=== PATIENT | female | born 1960 | race Caucasian/White ===

== ENCOUNTER → 2016-11-13 | Outpatient (CLI) | payer MEDICARE, OTHER ==
[2016-11-13 12:40] LABS: CHCM 27.8; HCT 33.8 % (34.0-46.0); HDW 3.34; HGB 9.3 gm/dL (11.4-16.0); Hypochromasia Marked; MCH 23.9 pg (25.0-35.0); Mean Platelet Volume 8.1; RDW 15.1 % (11.5-15.5); WBC 6.3 k/uL (3.8-10.6)
[2016-11-13 12:41] LABS: MCHC 27.6 g/dL (31.0-37.0); MCV 86.8 fL (80.0-100.0)
[2016-11-13 13:07] LABS: ALT 25 U/L (9-52); AST 31 U/L (14-36); Alkaline Phosphatase 110 U/L (38-126); Anion Gap 8 mmol/L; Blood Urea Nitrogen 14 mg/dL (7-17); Calcium 8.8 mg/dL (8.4-10.2); Carbon Dioxide 28 mmol/L (22-30); Chloride 103 mmol/L (98-107); Glucose 78 mg/dL (74-99); Non-African American GFR(MDRD) >60 (>60 ml/min/1.73 sqM); Potassium 4.6 mmol/L (3.5-5.1); Sodium 139 mmol/L (137-145); Total Bilirubin 0.2 mg/dL (0.2-1.3); Total Protein 6.8 g/dL (6.3-8.2)
[2016-11-13 13:42] LABS: Erythrocyte Sedimentation Rate 25 mm/hr (0-20)
--- NOTE | 2016-11-13 14:34 | CT ---
EXAMINATION TYPE: CT abdomen pelvis w con DATE OF EXAM: 11/13/2016 2:10 PM COMPARISON: NONE HISTORY: follow up gastric ulcer per patient. Gastric neoplasm per order. CT DLP: 576 mGycm Automated exposure control for dose reduction was used. TECHNIQUE: Helical acquisition of images was performed from the lung bases through the pelvis. CONTRAST: Performed with Oral Contrast and with IV Contrast, patient injected with 100 mL of Omnipaque 300. FINDINGS: Patient has very little intra-abdominal fat making evaluation suboptimal LUNG BASES: There is partial visualization of bilateral breast implants. There is moderate emphysemat ous change with left basilar linear scarring.. LIVER/GB: There is mild to moderate extrahepatic as well as central intrahepatic biliary dilatation. Common bile duct measures up to 11 mm diameter on coronal image 19. Adjacent pancreatic duct is dilat ed towards the ampulla at 7 mm on axial image 32. Double duct sign is present without visualization o f mass but abrupt tapering on coronal image 20. Follow-up advised. PANCREAS: Pancreatic ductal dilatation of proximal body and head. SPLEEN: No significant abnormality is seen. ADRENALS: No significant abnormality is seen. KIDNEYS: Symmetric cortical medullary uptake and excretion from both kidneys with abnormal superior a xis to right kidney. There is prominent extrarenal pelvis on the right. REPRODUCTIVE ORGANS: No significant abnormality is seen URINARY BLADDER: No significant abnormality is seen. PELVIC ADENOPATHY: None visualized. OSSEOUS STRUCTURES: Suspect nonspecific enhancement of the lumbar nerve root in the spinal canal. BOWEL: The oral contrast reaches level of the hepatic flexure. Stomach is not greatly distended, the re is overall mild to moderate wall thickening with slightly more prominent wall thickening seen in t he distal body near axial image 28. Findings could correlate with residual neoplasm or gastritis. The re is no suspicious small or large bowel dilatation. There is suggestion of abnormal wall thickening in jejunal loops in the left upper to mid abdomen, cannot exclude enteritis at this level. Normal-glenn earing appendix is seen from cecum in the right lower quadrant. Other: There is moderate to severe mixed plaque in aorta and branch vessels. IMPRESSION: 1. PROMINENT WALL THICKENING OF THE STOMACH COULD REFLECT RESIDUAL NEOPLASM VERSUS GASTRITIS, THIS IS NONSPECIFIC FINDING ON CT. 2. NO SUSPICIOUS MASS OR ADENOPATHY IS SEEN TO SUGGEST METASTATIC MALIGNANCY. 3. MILD TO MODERATE BILIARY DILATATION AND MILD PANCREATIC HEAD DUCTAL DILATATION, NO CAUSE IDENTIFIE D, CONSIDER ERCP FOLLOW-UP.
[2016-11-13 16:07] LABS: Nucleated Red Blood Cells 0 /100 WBC (0-0); Ovalocytes Present; Total Cells Counted 100
[2016-11-13 16:08] LABS: Manual Review Performed
[2016-11-14 05:33] LABS: Cardiolipin Ab IgG <9.0 GPL (<15); Cardiolipin Ab IgM 20.1 MPL (<12.5)
== END | disposition home or self-care (01) ==
LOC: RADCTMAIN 11:55
PROVIDERS: ATTEND Internal Medicine Gastroenterology
DX: K31.89 Other diseases of stomach and duodenum (principal); K86.89 Other specified diseases of pancreas; K83.8 Other specified diseases of biliary tract; L98.499 Non-pressure chronic ulcer of skin of other sites with unspecified severity
CPT/HCPCS: 86160 ×2; 86147; 80053; 85652; 85027; 86225; 74177; 36415; Q9967

== ENCOUNTER → 2017-06-05 | Outpatient (CLI) | payer OTHER ==
[2017-06-05 09:28] VITALS: BMI 14.4
== END ==
LOC: MNTWWP 09:05
PROVIDERS: ATTEND Family Medicine
DX: M32.9 Systemic lupus erythematosus, unspecified (principal); R63.6 Underweight
CPT/HCPCS: 36415; 81001; 82607; 82746; 87077; 87086; 87186; 97802

== ENCOUNTER → 2017-06-05 | Outpatient (CLI) | payer OTHER ==
[2017-06-05 11:16] LABS: Appearance,Urine Cloudy (Clear); Bacteria,Urine Rare /hpf; Bilirubin,Urine Negative (Negative); Glucose,Urine (UA) Negative (Negative); Ketones,Urine Negative (Negative); Leukocyte Esterase,Urine Large (Negative); Mucus,Urine Rare /hpf; Nitrite,Urine Positive (Negative); Particle Count 56771; Protein,Urine Negative (Negative); RBC,Urine 2 /hpf (0-5); Specific Gravity,Urine 1.015 (1.001-1.035); UA Billing (MACRO vs. MICRO) MICRO; Urobilinogen,Urine <2.0 mg/dL (<2.0); WBC,Urine 17 /hpf (0-5)
== END | disposition home or self-care (01) ==
LOC: LABWHC1 09:09
PROVIDERS: ATTEND Internal Medicine Rheumatology
DX: N39.0 Urinary tract infection, site not specified (principal); M32.19 Other organ or system involvement in systemic lupus erythematosus; R71.8 Other abnormality of red blood cells
CPT/HCPCS: 36415; 81001; 82607; 82746; 87077; 87086; 87186

== ENCOUNTER → 2018-12-20 | Outpatient (CLI) | payer OTHER ==
--- NOTE | 2018-12-20 12:51 | CT ---
EXAMINATION TYPE: CT brain wo con DATE OF EXAM: 12/20/2018 COMPARISON: None INDICATION: Double vision x 2 months. DLP: 1165.58 mGycm, Automated exposure control for dose reduction was used. CONTRAST: None CT of the brain is performed utilizing 3 mm thick sections through the posterior fossa and 3 mm thick sections through the remaining calvarium. Study is performed within 24 hours of arrival to the hosp ital. No abnormal hyperdensity is present to suggest an acute intracranial hemorrhage. No mass lesion is evident. No acute infarcts are evident. Ventricles and sulci are appropriate for the patient age. Paranasal sinuses and mastoid air cells within the [id number] are clear. IMPRESSIONS: 1. Normal CT Brain
--- NOTE | 2018-12-20 12:55 | CT ---
EXAMINATION TYPE: CT orbits wo con DATE OF EXAM: 12/20/2018 COMPARISON: None HISTORY: Double vision x [address] DLP: 267.02 mGycm Automated exposure control for dose reduction was used. TECHNIQUE: Axial images 2 mm thick sections. Reconstructed images plane. FINDINGS: Note is made of septal deviation. Right septal deviation is present anteriorly. Left septal spur is p resent. Paranasal sinuses and mastoid air cells within the [id number] are clear Globes are symmetrical. Orbital floors are normal. Ostiomeatal units are patent. Fat is normal. Extraocular muscles are normal. The optic chiasm is visualized appears normal. IMPRESSION: 1. NORMAL NONCONTRAST CT ORBITS. 2. CONSIDER MRI ORBITS IF ADDITIONAL EVALUATION WOULD BE OF BENEFIT.
== END | disposition home or self-care (01) ==
LOC: RADCTMAIN 11:17
PROVIDERS: ATTEND Ophthalmology
DX: H53.2 Diplopia (principal)
CPT/HCPCS: 70450; 70480

== ENCOUNTER → 2019-02-19 | Outpatient (CLI) | payer OTHER ==
--- NOTE | 2019-02-19 22:45 | BD ---
EXAMINATION TYPE: Axial Bone Density DATE OF EXAM: 02/19/2019 COMPARISON: 06/22/2015 CLINICAL HISTORY: Height: 62.2 IN Weight: 86 LBS FRAX RISK QUESTIONS: Secondary Osteoporosis: 2. Hyperthyroidism: YES 3. Menopause before 45: AGE 35 Rheumatoid Arthritis: YES Current Tobacco Use: YES RISK FACTORS HISTORY OF: History of Wrist Fracture: YES RT When: AGE 26 Family History of Osteoporosis: YES MOTHER Active: YES Postmenopausal woman: AGE 35 MEDICATIONS: Thyroid Medications: YES Which medication: LEVOTHYROXINE How Lon+ YEARS Osteoporosis Medications: NOT NOW Which medication: FOSAMAX How Lon MONTHS Additional Medications: DAILY VITAMIN, LEVOTHYROXINE, PLAQUENIL, HIGH BLOOD PRESSURE MED, PROZAC EXAM MEASUREMENTS: Bone mineral densitometry was performed using the [employer] System. Bone mineral density as measured about the Lumbar spine is: ----- L1-L4(G/cm2): 0.932 T Score Values are as follows: ----- L2: -1.7 ----- L3: -1.6 ----- L4: -2.4 ----- L1-L4: -2.1 Bone mineral density has: DECREASED -1.3% since study of: Bone mineral density about the R hip (g/cm2): 0.662 Bone mineral density about the L hip (g/cm2): 0.728 T Score values are as follows: -----R Neck: -2.7 -----L Neck: -2.2 -----R Total: -2.9 -----L Total: -2.4 Bone mineral density has: DECREASED -6.3% since study of: 06/22/2015 IMPRESSION: Osteoporosis (T Score less than -2.5). There is increased fracture risk and therapy is usually indicated based on age. Re-Screen 1-2 years. NOTE: T-SCORE=SD OF THE YOUNG ADULT MEAN.
== END | disposition home or self-care (01) ==
LOC: RADBDWWP 15:39
PROVIDERS: ATTEND Internal Medicine Rheumatology
DX: M81.0 Age-related osteoporosis without current pathological fracture (principal)
CPT/HCPCS: 77080

== ENCOUNTER → 2020-07-16 | Outpatient (CLI) | payer OTHER ==
--- NOTE | 2020-07-19 09:14 | US ---
EXAMINATION TYPE: US kidneys/renal and bladder DATE OF EXAM: 07/16/2020 COMPARISON: CT 2017. CLINICAL HISTORY: N39.0 UTI. EXAM MEASUREMENTS: Right Kidney: 10.6 x 4.4 x 4.4 cm Left Kidney: 9.9 x 4.7 x 5.0 cm Post Void Residual Volume: 10.6 mL Right Kidney: prominent extra renal pelvis noted Left Kidney: No hydronephrosis or masses seen Bladder: wnl Bilateral Jets seen: No Normal Post Void Residual: Yes Adjacent liver is heterogeneously hyperechoic with scanning right kidney. Prominent right renal pelvi s redemonstrated without calyceal dilatation. Left kidney shows no hydronephrosis or concerning andrew s. Bladder is satisfactorily distended. After voiding minimal residual urine is present. IMPRESSION: Prominent right-sided extrarenal pelvis redemonstrated. No new hydronephrosis noted.
== END | disposition home or self-care (01) ==
LOC: RADUSWWP 16:07
PROVIDERS: ATTEND Urology
DX: N39.0 Urinary tract infection, site not specified (principal)
CPT/HCPCS: 76770

== ENCOUNTER 2020-08-09 09:59 | Day surgery (SDC) | payer OTHER ==
[2020-08-05 14:49] VITALS: BMI 16.2
[~2020-08-09 09:59] MED LIST: LACTATED RINGERS 1,000 ML IV SCH; LIDOCAINE 1% (10MG/ML) FOR IV START INTRADERMA PRN
[2020-08-09 10:29] VITALS: TEMP 97.9
[2020-08-09] MEDS ORDERED: LABETALOL SYRINGE 5 MG/ML IV ONE (11:10)
[2020-08-09] MEDS ORDERED: hydrALAZINE HCL 20 MG/ML 1 ML VIAL IV ONE ×2 (11:28→11:32)
[2020-08-09] MEDS ORDERED: fentaNYL (PF) 50 MCG/ML 2 ML AMP ONE (12:49)
[2020-08-09] MEDS ORDERED: PROPOFOL 10 MG/ML 20 ML VIAL IV ONE (12:49)
[2020-08-09] MEDS ORDERED: LIDOCAINE 1% INJ 10MG/ML (20 ML MDV) ONE (12:49)
[2020-08-09 13:35] VITALS: PULSE 66; RESP 18
--- NOTE | 2020-08-09 13:38 | P.PCN ---
Date of Procedure: 08/09/20 Description of Procedure: BRIEF HISTORY: Patient is a 60-year-old female presenting for outpatient colonoscopy for screening for malignant neoplasm of the colon. Last colonoscopy 7 years ago. She has a history of colon polyps. No family history of colon cancer. PROCEDURE PERFORMED: Colonoscopy. PREOPERATIVE DIAGNOSIS: Screening for malignant neoplasm of the colon, last colonoscopy 7 years ago. ESTIMATED BLOOD LOSS: Minimal. IV sedation per Anesthesia. PROCEDURE: After informed consent was obtained, the patient, was brought into the endoscopy unit. IV sedation was administered by Anesthesia under continuous monitoring. Digital rectal examination was normal. Initially the Olympus CF-190 flexible video colonoscope was then inserted in the rectum, gradually advanced into the cecum without any difficulty. Careful examination was performed as the scope was gradually being withdrawn. Ileocecal valve and the appendiceal orifice were visualized and appeared normal. Prep was fair with liquid stool throughout the entire colon with some solid components prohibiting complete visualization of the mucosa. Mucosa of the cecum, ascending colon, transverse colon, descending colon, sigmoid colon, and rectum which was able to be visualized appeared normal, however complete visualization prohibited by fair prep. Retroflexion was performed in the rectum and no lesions were seen. The patient tolerated the procedure well. IMPRESSION: Fair prep prohibiting complete visualization of the colon. Otherwise tissue of the mucosa of the colon from rectum to cecum which was able to be visualized and appeared normal. RECOMMENDATIONS: Findings of this examination were discussed with the patient and her family. Okay to resume diet. Okay to resume medications. Would recommend repeat colonoscopy in 1 year with 2 day prep due to poor prep.
[2020-08-09 13:47] VITALS: BP 152/61
== END 2020-08-09 14:16 | disposition home or self-care (01) ==
LOC: ORWHC2ENDO 09:59
PROVIDERS: ATTEND Internal Medicine
DX: Z12.11 Encounter for screening for malignant neoplasm of colon (principal); I10 Essential (primary) hypertension; J44.9 Chronic obstructive pulmonary disease, unspecified; E07.9 Disorder of thyroid, unspecified; M32.9 Systemic lupus erythematosus, unspecified; F17.210 Nicotine dependence, cigarettes, uncomplicated; Z86.010 Personal history of colon polyps; Z79.899 Other long term (current) drug therapy; Z79.890 Hormone replacement therapy; Z98.890 Other specified postprocedural states; Z98.62 Peripheral vascular angioplasty status; Z98.82 Breast implant status; Z90.89 Acquired absence of other organs
CPT/HCPCS: J0360; J2001; J3010; J2704; G0105

== ENCOUNTER 2022-03-19 12:29 | Emergency (ER) | payer OTHER ==
[2022-03-19 13:02] VITALS: RESP 16; TEMP 98.1
--- NOTE | 2022-03-19 14:20 | ED ---
Skin/Abscess/FB HPI - General Chief complaint: Skin/Abscess/Foreign Body Stated complaint: Breast swollen Time Seen by Provider: 03/19/22 14:00 Source: patient, RN notes reviewed, old records reviewed Mode of arrival: ambulatory Limitations: no limitations - History of Present Illness Initial comments: Patient is a 62-year-old female presenting to the emergency Department with complaints of swelling and tenderness around her right breast. Patient does have history of breast implants, has had multiple sets, last set was done about 5-[address] Trevizo. Patient states over the past 3 weeks she has been noticing swelling and some discomfort of her right breast. She denies any erythema or drainage. She did have a consult with another doctor, they were a delgado only basis and she cannot afford $4,000 to see them. Patient then made an appointment with Dr. Ryann Burnett which is not for another 2 weeks. Patient is concerned that she could be developing an infection. She denies any fevers or chills, no nausea or vomiting. She denies any injuries or trauma to the area. She has no further complaints. - Related Data Home Medications Medication Instructions Recorded Confirmed Hydroxychloroquine Sulfate 200 mg PO DAILY 03/02/14 08/05/20 [Plaquenil] Levothyroxine Sodium [Synthroid] 100 mcg PO MOTUWETHFRSA 06/03/14 08/05/20 Cholecalciferol [Vitamin D3 (25 1,000 unit PO DAILY 08/05/20 08/05/20 Mcg = 1000 Iu)] Ferrous Sulfate [Feosol] 325 mg PO DAILY 08/05/20 08/05/20 Folic Acid 1 mg PO DAILY 08/05/20 08/05/20 Losartan [Cozaar] 25 mg PO DAILY 08/05/20 08/05/20 Vitamin B Complex 1 each PO DAILY 08/05/20 08/05/20 atenoloL 12.5 mg PO DAILY 08/05/20 08/05/20 Previous Rx's Medication Instructions Recorded Cephalexin [Keflex] 500 mg PO Q6HR 5 Days #20 cap 03/19/22 Allergies Allergy/AdvReac Type Severity Reaction Status Date / Time No Known Allergies Allergy Verified 03/19/22 13:02 Review of Systems ROS Statement: Those systems with pertinent positive or pertinent negative responses have been documented in the HPI. ROS Other: All systems not noted in ROS Statement are negative. Past Medical History Past Medical History: COPD, Hypertension, Thyroid Disorder Additional Past Medical History / Comment(s): hx lupus, frequent diarrhea & gas, minor aortic stenosis-follows w/[facility], frequent UTI's History of Any Multi-Drug Resistant Organisms: None Reported Past Surgical History: Breast Surgery, Tonsillectomy Additional Past Surgical History / Comment(s): EGD's, part of stomach removed related to ulcers, left lung surg-removed small part related to bleb,. COLONOSCOPY. RT CAROTID ENDARTERECTOMY,. BREAST AUGMENTATION X 4 Past Anesthesia/Blood Transfusion Reactions: Previous Problems w/ Anesthesia Additional Past Anesthesia/Blood Transfusion Reaction / Comment(s): some kind of problem after stomach surgery, "got too much", & aggravated lupus which affected lungs Past Psychological History: No Psychological Hx Reported Smoking Status: Current every day smoker Past Alcohol Use History: None Reported Past Drug Use History: None Reported - Past Family History Father Family Medical History: Cancer General Exam - General Exam Comments Initial Comments: GENERAL: Patient is well-developed and well-nourished. Patient is nontoxic and in no acute distress. HEAD: Atraumatic, normocephalic. EYES: Pupils equal round and reactive to light, extraocular movements intact, sclera anicteric, conjunctiva are normal. Eyelids were unremarkable. ENT: Moist mucous membranes. NECK: Normal range of motion, supple without lymphadenopathy or JVD. LUNGS: Unlabored respirations. Breath sounds clear to auscultation bilaterally and equal. No wheezes rales or rhonchi. HEART: Regular rate and rhythm without murmurs, rubs or gallops. ABDOMEN: Soft, nontender, normoactive bowel sounds. MUSCULOSKELETAL: Normal extremities with adequate strength and normal range of motion, no pitting or edema. No clubbing or cyanosis. NEUROLOGICAL: Patient is alert and oriented x 3. Normal speech, normal gait. PSYCH: Normal mood, normal affect. SKIN: Warm, Dry, normal turgor, no rashes. Right breast is markedly enlarged compared to the left, she does have some fullness with palpation, no specific area pain, no erythema, no drainage present. Limitations: no limitations Course Vital Signs 03/19/22 03/19/22 12:59 15:49 Temperature 98.1 F Pulse Rate 57 L 60 Respiratory 16 16 Rate Blood Pressure 140/59 155/87 O2 Sat by Pulse 98 98 Oximetry Medical Decision Making - Medical Decision Making Patient is a 62-year-old female here with swelling and tenderness of the right breast for the past 3 weeks. No erythema, drainage on exam. Ultrasound showing no pockets of abscess that can be seen. Patient does have an appointment with Dr. Burnett in 2 weeks. Patient be started on Keflex for possibility of a developing cellulitis/abscess. Patient is agreeable to this. Also recommend calling the office first thing in the morning for an earlier appointment. Return parameters were discussed. She verbalized understanding and she is stable for discharge. Disposition Clinical Impression: Breast swelling Disposition: HOME SELF-CARE Condition: Stable Instructions (If sedation given, give patient instructions): Edema (ED) Additional Instructions: Please return to the Emergency Department if symptoms worsen or any other concerns. Take anabolic as prescribed. Follow-up with Dr. Yin Burnett as discussed. Prescriptions: Cephalexin [Keflex] 500 mg PO Q6HR 5 Days #20 cap Is patient prescribed a controlled substance at d/c from ED?: No Referrals: Dwayne Delvalle DO [Primary Care Provider] - 1-2 days Ryann Burnett MD [STAFF PHYSICIAN] - 1-2 days Time of Disposition: 15:45
[2022-03-19 15:50] VITALS: BP 155/87; PULSE 60
== END 2022-03-19 15:50 | disposition home or self-care (01) ==
LOC: EC 12:29
DX: N63.10 Unspecified lump in the right breast, unspecified quadrant (principal); I10 Essential (primary) hypertension; J44.9 Chronic obstructive pulmonary disease, unspecified; F17.200 Nicotine dependence, unspecified, uncomplicated; E07.9 Disorder of thyroid, unspecified; Z79.890 Hormone replacement therapy; Z79.899 Other long term (current) drug therapy
CPT/HCPCS: 99283

== ENCOUNTER → 2022-04-10 | Outpatient (CLI) | payer OTHER ==
[2022-04-10 09:50] VITALS: BP 162/66; PULSE 62; RESP 16; TEMP 97.7
--- NOTE | 2022-04-10 10:46 | P.GSHP ---
History of Present Illness H&P Date: 04/10/22 Chief Complaint: swollen right breast Debbie is a 62 year old white female seen in consultation for Dr. Ramon regarding a swollen right breast. She had bilateral breast silicone implants in 2016. This is her fourth set of implants. Her first implants were placed in . The first set were Avi/[place] Silicone and theses removing 1992 without replacement for several years. She then had saline implants placed in 1996, one ruptured at a mammogram and these were removed in 1997 and replaced again with saline. One of theses also ruptured after a hug and these were replaced silicone in 2005 which she still has in place. Her last mammogram was in 2019, and did not have any recommendation for intervention. At that time she also had an ultrasound. She recently noted the right breast started swelling. It was not hot but is tender. She had no fever or chills. She had been taken care of by Dr. Willis, she saw a plastic surgeon and was told there was fluid behind her implant but that she should have some drainage tubes placed. However, for placement of drainage tube it would cost 4,000$ and she therefore came to see us. She has not had any other surgery on her breast. She is not complaining of any nipple discharge or skin changes. Patient was [place] in [place] [id number]. At that time she was started on an antibiotic. She had minimal results from the antibiotic. Plan was reviewed. She had most recently seen Dr. Delvalle's, Physician Assistnat : Shannen Sanchez on [id number]. That note was reviewed. caffiene: 3 cups/day nicotine: 2-3/day chocolate: occasional hormones: none BCP: never used Family History: father: lung cancer Hormonal history: Menarche: 12 , breast fed: no menopause: 37 secondary to hyperthyroid Surgical History: 4 breast implants tonsil 1/3 of stomach removed for ulcer disease carotid artery Medical history: hyperthyroid lupus mild cardiac stenosis arthritis rheumoatoid HTN Social History: nicotine: 2-3/day alcohol: none drugs: none - Constitutional Constitutional: Denies chills, Denies fever - EENT Eyes: denies blurred vision, denies pain Ears: deny: decreased hearing, tinnitus Ears, nose, mouth and throat: Denies headache, Denies sore throat - Breasts Breasts: bilateral: as per HPI - Cardiovascular Cardiovascular: Reports as per HPI - Respiratory Respiratory: Reports as per HPI - Gastrointestinal Gastrointestinal: Reports as per HPI - Genitourinary (Female) Genitourinary: Denies dysuria, Denies hematuria - Menstruation Menstruation: Reports postmenopausal - Musculoskeletal Musculoskeletal: Reports as per HPI - Integumentary Integumentary: Denies pruritus, Denies rash - Neurological Neurological: Denies numbness, Denies weakness - Psychiatric Psychiatric: Denies anxiety, Denies depression - Endocrine Comment: hyperthyroid/ patient treated with radiation and is now on synthroid - Hematologic/Lymphatic Comment: none - Allergic/Immunologic Allergic/Immunologic: Reports seasonal allergies Past Medical History Past Medical History: COPD, Hypertension, Thyroid Disorder Additional Past Medical History / Comment(s): hx lupus, frequent diarrhea & gas, minor aortic stenosis-follows w/[facility], frequent UTI's History of Any Multi-Drug Resistant Organisms: None Reported Past Surgical History: Breast Surgery, Tonsillectomy Additional Past Surgical History / Comment(s): EGD's, part of stomach removed related to ulcers, left lung surg-removed small part related to bleb,. COLONOSCOPY. RT CAROTID ENDARTERECTOMY,. BREAST AUGMENTATION X 4 Past Anesthesia/Blood Transfusion Reactions: Previous Problems w/ Anesthesia Additional Past Anesthesia/Blood Transfusion Reaction / Comment(s): some kind of problem after stomach surgery, "got too much", & aggravated lupus which affected lungs Past Psychological History: No Psychological Hx Reported Smoking Status: Current every day smoker Past Alcohol Use History: None Reported Additional Past Alcohol Use History / Comment(s): 3-4 cigs day from 1ppd for 30 yrs., has quit before Past Drug Use History: None Reported - Past Family History Father Family Medical History: Cancer Medications and Allergies Home Medications Medication Instructions Recorded Confirmed Type Hydroxychloroquine Sulfate 200 mg PO DAILY 03/02/14 04/10/22 History [Plaquenil] Levothyroxine Sodium [Synthroid] 100 mcg PO MOTUWETHFRSA 06/03/14 04/10/22 History Cholecalciferol [Vitamin D3 (25 1,000 unit PO DAILY 08/05/20 04/10/22 History Mcg = 1000 Iu)] Folic Acid 1 mg PO DAILY 08/05/20 04/10/22 History Losartan [Cozaar] 25 mg PO DAILY 08/05/20 04/10/22 History Vitamin B Complex 1 each PO DAILY 08/05/20 04/10/22 History atenoloL 12.5 mg PO DAILY 08/05/20 04/10/22 History Atorvastatin Calcium [Lipitor] 20 mg PO DAILY 04/10/22 04/10/22 History FLUoxetine HCL [PROzac] 20 mg PO DAILY 04/10/22 04/10/22 History amLODIPine [Norvasc] 5 mg PO DAILY 04/10/22 04/10/22 History Allergies Allergy/AdvReac Type Severity Reaction Status Date / Time No Known Allergies Allergy Verified 04/10/22 09:42 Surgical - Exam Vital Signs Temp Pulse Resp BP Pulse Ox 97.7 F 62 16 162/66 98 04/10/22 09:46 04/10/22 09:46 04/10/22 09:46 04/10/22 09:46 04/10/22 09:46 BMI 15.9 - General no distress - Eyes normal ocular movement - ENT no hearing loss - Neck trachea midline - Respiratory Wheeze left base normal respiratory effort, clear to auscultation - Cardiovascular Rhythm: regular Heart Sounds: normal: S1, S2 Abnormal Heart Sounds: systolic murmur - Abdomen Abdomen: soft, non tender, no guarding, no rigid, no rebound - Integumentary normal turgor - Neurologic no disoriented, no combative - Musculoskeletal normal gait - Psychiatric oriented to time, oriented to person, oriented to place, speech is normal, memory intact Breast Exam: BRA: 34B inspection: Marked asymmetry of the breast with the right being approximately double the size of the left and very firm Palpation: Right breast: Multi-positional exam very firm right breast with abnormal location of the implant, mass lateral aspect approximately 2 x 3 cm in size Right axilla: No adenopathy of concern Left breast: Implant in place most positional exam no discrete dominant masses or nodules of concern Left axilla: No adenopathy of concern Assessment and Plan Assessment: Impression: hyperthyroid lupus mild cardiac stenosis arthritis rheumoatoid HTN Bilateral breast implants times/most recent right breast swelling Plan: Patient's recent right breast ultrasound reviewed with Dr. Jeong from radiology/recommendation for bilateral breast MRI Depending the results of MRI probable removal of implants Follow-up after breast MRI consider appointment with another plastic surgeon/ Dr. Hercules Cc: Dr. Antonio, Shannen Sanchez
== END ==
LOC: WWCWWP 09:34
PROVIDERS: ATTEND Surgery
DX: N63.10 Unspecified lump in the right breast, unspecified quadrant (principal); I10 Essential (primary) hypertension; J44.9 Chronic obstructive pulmonary disease, unspecified; F17.210 Nicotine dependence, cigarettes, uncomplicated; Z79.899 Other long term (current) drug therapy; M32.9 Systemic lupus erythematosus, unspecified; I25.10 Atherosclerotic heart disease of native coronary artery without angina pectoris; M06.9 Rheumatoid arthritis, unspecified; E05.90 Thyrotoxicosis, unspecified without thyrotoxic crisis or storm; Z79.891 Long term (current) use of opiate analgesic

== ENCOUNTER → 2022-04-11 | Outpatient (CLI) | payer OTHER ==
--- NOTE | 2022-04-19 05:52 | BMR ---
EXAMINATION TYPE: MR breast BILAT wo/w con DATE OF EXAM: 04/11/2022 COMPARISON: Outside bilateral breast mammogram June 27, 2019 BI-RADS 0. Complete bilateral breast u ltrasound June 27, 2019 BI-RADS 2. Right breast complete ultrasound March 19, 2022 HISTORY: Abnormal Mammogram, Rt breast swelling, hx of gel implants TECHNIQUE: A series of fat and water weighted images in the long and short axis views of both breasts are obtained in conjunction with dynamic contrast MRI with subtraction technique. The patient was i njected with 4 mL intravenous Gadavist gadolinium contrast. Three-dimensional and additional postpr ocessing imaging is created on independent workstation and reviewed during official interpretation of this study. FINDINGS: There is asymmetric increased size of the right breast versus the left breast. Bilateral si licone implants are present. There is lobulated contour with keyhole sign consistent with intracapsul ar rupture on the right. Within the capsule there is silicone and saline noted. There is saline only surrounding the collapsed implant. Patient has little additional breast tissue. Dystrophic calcificat ions along the anterior lateral aspect of the implant correlate with prior mammogram. No suspicious axillary adenopathy bilaterally. Patient has little fat. No abnormal enhancement or enh ancing masses in either breast. The chest wall is intact bilaterally. Ascending aorta measures up to 3.5 cm in diameter. IMPRESSION: Asymmetric right breast enlargement with right breast intracapsular rupture. There is pre sence of saline and silicone in the right breast implant.
== END | disposition home or self-care (01) ==
LOC: RADMRIMAIN 07:19
PROVIDERS: ATTEND Surgery
DX: N64.89 Other specified disorders of breast (principal); Z98.82 Breast implant status
CPT/HCPCS: 77049; C8937; A9585

== ENCOUNTER → 2023-06-25 | Outpatient (CLI) | payer OTHER ==
[2023-06-25 16:55] LABS: Chol/HDL Ratio 3.02 Ratio; LDL Cholesterol,Calculated 90.6 mg/dL (0.0-131.0)
[2023-06-25 20:25] LABS: Appearance,Urine Clear (Clear); Bilirubin,Urine Negative (Negative); Blood,Urine Negative (Negative); Color,Urine Yellow (Yellow); Ketones,Urine Negative (Negative); Nitrite,Urine Negative (Negative); Specific Gravity,Urine 1.013 (1.001-1.030)
[2023-06-25 20:29] LABS: Bacteria,Urine None Seen (None Seen)
== END | disposition home or self-care (01) ==
LOC: LABWHC1 09:12
PROVIDERS: ATTEND Internal Medicine Rheumatology
DX: I10 Essential (primary) hypertension (principal); Z79.899 Other long term (current) drug therapy; M32.19 Other organ or system involvement in systemic lupus erythematosus
CPT/HCPCS: 36415; 80061; 81001

== ENCOUNTER → 2023-07-06 | Outpatient (CLI) | payer OTHER ==
--- NOTE | 2023-07-06 11:55 | XR ---
EXAM TYPE: LUMBAR SPINE X RAY SERIES COMPARISON: NONE HISTORY: Pain TECHNIQUE: 4 views are submitted. FINDINGS: Alignment is anatomic. The pedicles are intact. The transverse processes are intact. There is jerry re degenerative disc disease L2-L3 with discogenic changes. Multilevel facet arthropathy most marked at L5-S1. Scoliosis with vascular calcifications. Metallic densities in the left abdomen possibly rep resenting surgical previous suture correlate clinically. IMPRESSION: 1. Scoliosis with severe degenerative disc disease and complete loss of disc space L2-L3. Facet arthr opathy lower lumbar spine.
--- NOTE | 2023-07-06 11:57 | XR ---
EXAMINATION TYPE: XR pelvis AP view DATE OF EXAM: 07/06/2023 COMPARISON: NONE HISTORY: Pain The osseous structures are intact and the joint spaces are preserved. No acute fracture is seen. Vi sualized bowel gas pattern is nonspecific. Vascular calcifications noted. There is mild diffuse oste openia. Bilateral hip arthropathy. Lucency overlying the left pubic ramus likely is related to soft t issue artifact IMPRESSION: 1. Lucency overlying the left inferior pubic ramus most likely related to soft tissue artifact. If po int tender correlate with CT scan pelvis.
== END | disposition home or self-care (01) ==
LOC: RADXRMAIN 11:09
PROVIDERS: ATTEND Internal Medicine Rheumatology
DX: M51.36 Other intervertebral disc degeneration, lumbar region (principal); M47.816 Spondylosis without myelopathy or radiculopathy, lumbar region; M41.86 Other forms of scoliosis, lumbar region; M85.851 Other specified disorders of bone density and structure, right thigh; R10.2 Pelvic and perineal pain
CPT/HCPCS: 72110; 72170

== ENCOUNTER → 2023-07-24 | Outpatient (CLI) | payer OTHER ==
--- NOTE | 2023-07-26 07:55 | MR ---
EXAMINATION TYPE: MR lumbar spine wo con DATE OF EXAM: 07/24/2023 8:37 AM CLINICAL INDICATION:Female, 63 years old with history of M51.36; PHH, Low back pain into buttocks, fa ll and trauma to back COMPARISON: None TECHNIQUE: Multi planar, multi sequence imaging was performed utilizing: T1-weighted, T2-weighted, a nd turbo inversion recovery imaging of the lumbar spine. IV Contrast: cc . None. FINDINGS: Alignment: The lumbar vertebral bodies have preserved heights and alignment. Cord: The conus medullaris and the distal spinal cord appear unremarkable with regards to their signa l intensity and morphology. Bones/Discs: Multilevel disc degeneration changes with osteophyte formation, disc space narrowing, Sc hmorl's nodes, and facet joint arthropathy. Reactive bony edema with high inversion recovery signal m ost pronounced at the adjoining endplates of L2 and L3. There is bony edema within the spinous proces s of L3 and L4 with close approximation of the spinous processes. Multilevel disc desiccation is pres ent. T12-L1: No evidence of significant spinal canal stenosis or neural foraminal stenosis. L1-L2: No evidence of significant spinal canal stenosis or neural foraminal stenosis. L2-L3: No evidence of significant spinal canal stenosis. Facet joint arthropathy moderate left and mi ld right neural foraminal stenosis. L3-L4: Eccentric right disc bulge and facet joint arthropathy result in mild spinal canal and moderat e bilateral neural foraminal stenosis. L4-L5: Disc bulge and facet joint arthropathy result in mild spinal canal and moderate bilateral neur al foraminal stenosis. L5-S1: The disc is rounded posterior morphology without significant spinal canal stenosis. Facet join t arthropathy with mild neural foraminal stenosis. No significant spinal canal or neural foraminal stenosis in the remainder of the visualized levels. P erineural cysts noted at the level of S2-S3 measuring up to 17 mm on the right and 10 mm on the left abutting the exiting S2-S3 nerves. Other findings: None. IMPRESSION: 1. No definitive evidence of disc herniation or significant spinal canal stenosis. 2. Mild bony edema within the injury stenosis of L3 and L4. Correlate for Baastrup's disease. 3. Multilevel disc degeneration with associated osteoarthritic changes with neural foraminal stenosis worse in the L2-L5 sections. 4. Perineural cysts abutting the exiting S2-S3 nerves bilaterally.
== END | disposition home or self-care (01) ==
LOC: RADMRIMAIN 07:28
PROVIDERS: ATTEND Family Medicine
DX: M51.36 Other intervertebral disc degeneration, lumbar region (principal); M47.816 Spondylosis without myelopathy or radiculopathy, lumbar region; R60.0 Localized edema; G96.191 Perineural cyst
CPT/HCPCS: 72148

== ENCOUNTER → 2023-08-28 | Outpatient (CLI) | payer OTHER ==
[2023-08-28 16:21] LABS: Blood Urea Nitrogen 12.7 mg/dL (9.0-27.0); Calcium 9.9 mg/dL (8.7-10.3)
[2023-08-28 17:39] LABS: Basophils # (A) 0.12 X 10*3/uL (0.00-0.10); Basophils % (A) 1.7 %; Eosinophils # (A) 0.12 X 10*3/uL (0.04-0.35); Eosinophils % (A) 1.7 %; HCT 46.2 % (37.2-50.0); Lymphocytes # (A) 1.96 X 10*3/uL (0.90-5.00); Lymphocytes % (A) 27.8 %; MCHC 32.5 d/dL (32.0-37.0); MCV 104.8 FL (80.0-97.0); Mean Platelet Volume 9.9 FL (9.5-12.2); Monocytes % (A) 8.5 %; NRBC Per 100 WBC 0 X 10*3/uL (0.00-0.01); Neutrophils # (A) 4.21 X 10*3/uL (1.80-7.70); Neutrophils % (A) 59.7 %; Platelet Count 246 X 10*3/uL (140-440); RBC 4.41 X 10*6/uL (4.10-5.60); RDW 13.1 % (11.5-14.5); WBC 7.05 X 10*3/uL (4.50-10.00)
== END | disposition home or self-care (01) ==
LOC: LABWHC1 10:12
PROVIDERS: ATTEND Internal Medicine Rheumatology
DX: M32.9 Systemic lupus erythematosus, unspecified (principal); M81.0 Age-related osteoporosis without current pathological fracture; Z79.899 Other long term (current) drug therapy
CPT/HCPCS: 36415; 82306; 82310; 82565; 84520; 85025

== ENCOUNTER → 2023-10-01 | Outpatient (CLI) | payer OTHER ==
--- NOTE | 2023-10-02 19:46 | BD ---
EXAMINATION TYPE: Axial Bone Density DATE OF EXAM: 10/01/2023 CLINICAL HISTORY: 63 years old Female. ICD-10 CODE: M81.0 AGE-RELATED OSTEOPOROSIS W/O CURRENT PATHO LO Height: 62 Weight: 79.2 FRAX RISK QUESTIONS: Alcohol (3 or more units per day): no Family History (Parent hip fracture): no Glucocorticoids (More than 3mos): no History of Fracture in Adulthood: no Secondary Osteoporosis: 1. Type 1 Diabetes: no 2. Hyperthyroidism: no 3. Menopause before 45: yes 4. Malnutrition: small stature 5. Chronic liver disease: no Rheumatoid Arthritis: no Current Tobacco Use: yes RISK FACTORS HISTORY OF: Hip Fracture (Right/Left): no Spine Fracture: no History of Wrist Fracture: no Surgery to Spine/Hip(right/left)/Wrist (right/left): no Family History of Osteoporosis: mother Active: yes Diet low in dairy products/other sources of calcium: no Postmenopausal woman: yes Take estrogen and/or progesterone medications: no Lost more than 2 inches in height since high school: no Frequent falls: no Poor Health: no Hyperparathyroidism: previously Adrenal Insufficiency: no MEDICATIONS: Prednisone or other steroids: no Thyroid Medications:Levothyroxine How Long: past 6 years Osteoporosis Medications: Prolia every 6 moths How Long: past 4 years Additional Medications: BP Meds x3, Anxiety Meds, Multi Vit. Additional History: EXAM MEASUREMENTS: Bone mineral densitometry was performed using the [employer] System. Bone mineral density as measured about the Lumbar spine is: ----- L1-L4(G/cm2): 1.049 T Score Values are as follows: ----- L1: -3.2 ----- L2: -0.3 ----- L3: 0.7 ----- L4: -1.6 ----- L1-L4: -1.1 Z Score Values are as follows: ----- L1: -0.7 ----- L2: 2.2 ----- L3: 3.2 ----- L4: 1.0 ----- L1-L4: 1.4 Bone mineral density has: increased 12.6 % since study of: 02/19/2019 Bone mineral density about the R hip (g/cm2): 0.684 Bone mineral density about the L hip (g/cm2): 0.753 T Score values are as follows: -----R Neck: -2.8 -----L Neck: -2.2 -----R Total: -2.6 -----L Total: -2.0 Z Score values are as follows: -----R Neck: -0.7 -----L Neck: -0.2 -----R Total: -0.7 -----L Total: -0.2 Bone mineral density has: increased 7.0 % since study of: 02/19/2019 FRAX%s: The graph provided illustrates a 16.6% chance for a major osteoporotic fx and a 7.6% chance f or the hips probability for fx in 10 years time. IMPRESSION: Osteoporosis (T Score less than -2.5). There is increased fracture risk and therapy is usually indicated based on age. Re-Screen 1-2 years. NOTE: T-SCORE=SD OF THE YOUNG ADULT MEAN.
== END | disposition home or self-care (01) ==
LOC: RADBDWWP 14:42
PROVIDERS: ATTEND Internal Medicine Rheumatology
DX: M81.0 Age-related osteoporosis without current pathological fracture (principal); M85.852 Other specified disorders of bone density and structure, left thigh; Z78.0 Asymptomatic menopausal state
CPT/HCPCS: 77080

== ENCOUNTER → 2024-03-05 | Outpatient (CLI) | payer OTHER ==
[2024-03-05 17:12] LABS: Appearance,Urine Cloudy (Clear); Bilirubin,Urine Negative (Negative); Blood,Urine Trace (Negative); Color,Urine Yellow (Yellow); Ketones,Urine Trace (Negative); Nitrite,Urine Negative (Negative); Specific Gravity,Urine 1.017 (1.001-1.030)
[2024-03-05 17:19] LABS: Bacteria,Urine 2+ (None Seen)
== END | disposition home or self-care (01) ==
LOC: LABWHC1 10:45
PROVIDERS: ATTEND Internal Medicine Rheumatology
DX: M81.0 Age-related osteoporosis without current pathological fracture (principal); R30.0 Dysuria
CPT/HCPCS: 36415; 81001; 82310; 87086

== ENCOUNTER 2024-04-23 13:18 | Observation (INO) | payer OTHER ==
--- NOTE | 2024-04-23 14:26 | ED ---
Abdominal Pain HPI - General Chief Complaint: Abdominal Pain Stated Complaint: Abd Pain Time Seen by Provider: 04/23/24 14:00 Source: patient, RN notes reviewed Mode of arrival: ambulatory Limitations: no limitations - History of Present Illness Initial Comments: 64-year-old female presenting with right lower quadrant abdominal pain x 10 hours. States the pain woke her up around 1 AM this morning and she describes the pain as a 9/10 stabbing, constant pain in her right lower quadrant. The pain does radiate into the right side of back. Admits some nausea but denies vomiting. Admits some dysuria as well. States she had an episode of diarrhea this morning. Denies fever. She has never had this pain before. She states she has frequent UTIs. She has a history of partial bowel resection. - Related Data Home Medications Medication Instructions Recorded Confirmed Hydroxychloroquine Sulfate 200 mg PO DAILY 03/02/14 04/23/24 [Plaquenil] Folic Acid 1 mg PO DAILY 08/05/20 04/23/24 atenoloL 12.5 mg PO DAILY 08/05/20 04/23/24 FLUoxetine HCL [PROzac] 20 mg PO DAILY 04/10/22 04/23/24 amLODIPine [Norvasc] 5 mg PO DAILY 04/10/22 04/23/24 ALPRAZolam [Xanax] 0.25 mg PO DAILY PRN 04/23/24 04/23/24 Cyclobenzaprine [Flexeril] 10 mg PO DAILY PRN 04/23/24 04/23/24 HYDROcodone/APAP 5-325MG [Woody 1 tab PO TID PRN 04/23/24 04/23/24 5-325] Levothyroxine Sodium [Synthroid] 100 mcg PO DAILY 04/23/24 04/23/24 Losartan [Cozaar] 50 mg PO DAILY 04/23/24 04/23/24 Rosuvastatin Calcium [Crestor] 5 mg PO DAILY 04/23/24 04/23/24 Allergies Allergy/AdvReac Type Severity Reaction Status Date / Time nitrofurantoin AdvReac Nausea & Verified 04/23/24 15:32 [From Macrobid] Vomiting & Diarrhea Review of Systems ROS Statement: Those systems with pertinent positive or pertinent negative responses have been documented in the HPI. ROS Other: All systems not noted in ROS Statement are negative. Past Medical History Past Medical History: COPD, Hypertension, Thyroid Disorder Additional Past Medical History / Comment(s): hx lupus, frequent diarrhea & gas, minor aortic stenosis-follows w/[facility], frequent UTI's History of Any Multi-Drug Resistant Organisms: None Reported Past Surgical History: Breast Surgery, Tonsillectomy Additional Past Surgical History / Comment(s): EGD's, part of stomach removed related to ulcers, left lung surg-removed small part related to bleb,. COLONOSCOPY. RT CAROTID ENDARTERECTOMY,. BREAST AUGMENTATION X 4 Past Anesthesia/Blood Transfusion Reactions: Previous Problems w/ Anesthesia Additional Past Anesthesia/Blood Transfusion Reaction / Comment(s): some kind of problem after stomach surgery, "got too much", & aggravated lupus which affected lungs Past Psychological History: No Psychological Hx Reported Smoking Status: Current every day smoker Past Alcohol Use History: None Reported Past Drug Use History: None Reported - Past Family History Father Family Medical History: Cancer General Exam Limitations: no limitations General appearance: alert, in no apparent distress Head exam: Present: atraumatic, normocephalic, normal inspection Eye exam: Present: normal appearance, PERRL, EOMI. Absent: scleral icterus, conjunctival injection, periorbital swelling ENT exam: Present: normal exam, mucous membranes moist Respiratory exam: Present: normal lung sounds bilaterally. Absent: respiratory distress, wheezes, rales, rhonchi, stridor Cardiovascular Exam: Present: regular rate, normal rhythm, normal heart sounds. Absent: systolic murmur, diastolic murmur, rubs, gallop, clicks GI/Abdominal exam: Present: soft, tenderness (Tenderness to palpation in right lower quadrant), normal bowel sounds. Absent: distended, guarding, rebound, rigid Back exam: Present: normal inspection. Absent: CVA tenderness (R), CVA tenderness (L) Neurological exam: Present: alert, oriented X3, CN II-XII intact Psychiatric exam: Present: normal affect, normal mood Skin exam: Present: warm, dry, intact, normal color. Absent: rash Course Vital Signs 04/23/24 04/23/24 13:28 15:21 Temperature 97.6 F Pulse Rate 69 69 Respiratory 18 18 Rate Blood Pressure 116/50 164/53 O2 Sat by Pulse 96 96 Oximetry Medical Decision Making - Medical Decision Making Was pt. sent in by a medical professional or institution (RAAD Mendoza, P[employer] PL[employer] INSPECTOR, urgent care, hospital, or shelter...) When possible be specific @ -No Did you speak to anyone other than the patient for history (EMS, parent, family, police, friend...)? What history was obtained from this source @ -No Did you review nursing and triage notes (agree or disagree)? Why? @ -I reviewed and agree with nursing and triage notes Were old charts reviewed (outside hosp., previous admission, EMS record, old EKG, old radiological studies, urgent care reports/EKG's, shelter records)? Report findings @ -No old charts were reviewed Differential Diagnosis (chest pain, altered mental status, abdominal pain women, abdominal pain men, vaginal bleeding, weakness, fever, dyspnea, syncope, headache, dizziness, GI bleed, back pain, seizure, CVA, palpatations, mental health, musculoskeletal)? @ -Differential Abdominal Pain Women: Appendicitis, Cholecystitis, diverticulosis, ischemic bowel, pancreatitis, hepatitis, UTI, gastroenteritis, AAA, incarcerated hernia, bowel obstruction, constipation, inflammatory bowel, hepatitis, peptic ulcer disease, splenic infarction, perforated viscus, vulvitis, ovarian torsion, PID, kidney stone, p lacenta abruption, this is not meant to be an all-inclusive list EKG interpreted by me (3pts min.). @ -As above X-rays interpreted by me (1pt min.). @ -None done CT interpreted by me (1pt min.). @ -CT of abdomen/pelvis revealed nonspecific bowel findings with fluid-filled small bowel loops, possible ileus, nonvisualization of appendix U/S interpreted by me (1pt. min.). @ -None done What testing was considered but not performed or refused? (CT, X-rays, U/S, labs)? Why? @ -None What meds were considered but not given or refused? Why? @ -None Did you discuss the management of the patient with other professionals (professionals i.e. RAAD Mendoza, [employer] PL[employer] INSPECTOR, lab, RT, psych nurse, community mental health social worker, roll finisher, teacher, personal banking officer, case checker)? Give summary @ -Case discussed with Dr. Soriano who accepts admission at this time for hyperkalemia and possible ileus with surgical consult Was smoking cessation discussed for >3mins.? @ -No Was critical care preformed (if so, how long)? @ -No Were there social determinants of health that impacted care today? How? (Homelessness, low income, unemployed, alcoholism, drug addiction, transportation, low edu. Level, literacy, decrease access to med. care, long term, rehab)? @ -No Was there de-escalation of care discussed even if they declined (Discuss DNR or withdrawal of care, Hospice)? DNR status @ -No What co-morbidities impacted this encounter? (DM, HTN, Smoking, COPD, CAD, Cancer, CVA, ARF, Chemo, Hep., AIDS, mental health diagnosis, sleep apnea, morbid obesity)? @ -None Was patient admitted / discharged? Hospital course, mention meds given and route, prescriptions, significant lab abnormalities, going to OR and other pertinent info. @ -Patient was admitted. Patient was seen and evaluated for right lower quadrant abdominal pain x 1 day. Vital signs are unremarkable, patient is afebrile and nontachycardic. Physical examination is remarkable for tenderness to right lower quadrant upon palpation. Lab work remarkable for white blood cell count of 16.3 with left shift, potassium is 6.2, lactic acid is 2.3. CT showed nonspecific bowel findings, possible ileus. EKG revealed normal sinus rhythm with no ST changes. Discussed diagnosis of hyperkalemia and possible ileus with patient. Patient was started on IV bicarb and dextrose, followed by 10 units of IV insulin. Case discussed with Dr. Soriano who accepts admission at this time for hyperkalemia with possible ileus with consultation to surgery. Case discussed with my attending Dr. Orosco. Undiagnosed new problem with uncertain prognosis? @ -No Drug Therapy requiring intensive monitoring for toxicity (Heparin, Nitro, Insulin, Cardizem)? @ -No Were any procedures done? @ -No Diagnosis/symptom? @ -Hyperkalemia, ileus Acute, or Chronic, or Acute on Chronic? @ -Acute Uncomplicated (without systemic symptoms) or Complicated (systemic symptoms)? @ -Uncomplicated Side effects of treatment? @ -No Exacerbation, Progression, or Severe Exacerbation? @ -No Poses a threat to life or bodily function? How? (Chest pain, USA, ID, pneumonia, PE, COPD, DKA, ARF, appy, cholecystitis, CVA, Diverticulitis, Homicidal, Suicidal, threat to staff... and all critical care pts) @ -Yes - Lab Data Result diagrams: 04/23/24 14:45 04/23/24 14:45 Lab Results 04/23/24 04/23/24 04/23/24 Range/Units 14:45 14:45 14:45 WBC 16.3 H (3.8-10.6) k/uL RBC 4.24 (3.80-5.40) m/uL Hgb 14.5 (11.4-16.0) gm/dL Hct 45.0 (34.0-46.0) % MCV 106.1 H (80.0-100.0) fL MCH 34.1 (25.0-35.0) pg MCHC 32.2 (31.0-37.0) g/dL RDW 12.8 (11.5-15.5) % Plt Count 218 (150-450) k/uL MPV 8.1 Neutrophils % 85 % Lymphocytes % 9 % Monocytes % 4 % Eosinophils % 1 % Basophils % 0 % Neutrophils # 13.8 H (1.3-7.7) k/uL Lymphocytes # 1.4 (1.0-4.8) k/uL Monocytes # 0.7 (0-1.0) k/uL Eosinophils # 0.2 (0-0.7) k/uL Basophils # 0.1 (0-0.2) k/uL Macrocytosis Moderate Sodium 129 L (137-145) mmol/L Potassium 6.2 H* (3.5-5.1) mmol/L Chloride 99 (98-107) mmol/L Carbon Dioxide 23 (22-30) mmol/L Anion Gap 7 mmol/L BUN 15 (7-17) mg/dL Creatinine 0.69 (0.52-1.04) mg/dL Est GFR (CKD-EPI)AfAm >90 (>60 ml/min/1.73 sqM) Est GFR (CKD-EPI)NonAf >90 (>60 ml/min/1.73 sqM) Glucose 105 H (74-99) mg/dL Lactic Ac Sepsis Rflx Plasma Lactic Acid Som 2.3 H* (0.7-2.0) mmol/L Calcium 8.8 (8.4-10.2) mg/dL Total Bilirubin 1.3 (0.2-1.3) mg/dL AST 77 H (14-36) U/L ALT 21 (4-34) U/L Alkaline Phosphatase 56 (38-126) U/L Total Protein 6.8 (6.3-8.2) g/dL Albumin 4.2 (3.5-5.0) g/dL Lipase 61 (23-300) U/L Urine Color Urine Appearance (Clear) Urine pH (5.0-8.0) Ur Specific [place] (1.001-1.035) Urine Protein (Negative) Urine Glucose (UA) (Negative) Urine Ketones (Negative) Urine Blood (Negative) Urine Nitrite (Negative) Urine Bilirubin (Negative) Urine Urobilinogen (<2.0) mg/dL Ur Leukocyte Esterase (Negative) Urine RBC (0-5) /hpf Urine WBC (0-5) /hpf Ur Squamous Epith Cells (0-4) /hpf 04/23/24 04/23/24 Range/Units 15:43 16:27 WBC (3.8-10.6) k/uL RBC (3.80-5.40) m/uL Hgb (11.4-16.0) gm/dL Hct (34.0-46.0) % MCV (80.0-100.0) fL MCH (25.0-35.0) pg MCHC (31.0-37.0) g/dL RDW (11.5-15.5) % Plt Count (150-450) k/uL MPV Neutrophils % % Lymphocytes % % Monocytes % % Eosinophils % % Basophils % % Neutrophils # (1.3-7.7) k/uL Lymphocytes # (1.0-4.8) k/uL Monocytes # (0-1.0) k/uL Eosinophils # (0-0.7) k/uL Basophils # (0-0.2) k/uL Macrocytosis Sodium (137-145) mmol/L Potassium (3.5-5.1) mmol/L Chloride (98-107) mmol/L Carbon Dioxide (22-30) mmol/L Anion Gap mmol/L BUN (7-17) mg/dL Creatinine (0.52-1.04) mg/dL Est GFR (CKD-EPI)AfAm (>60 ml/min/1.73 sqM) Est GFR (CKD-EPI)NonAf (>60 ml/min/1.73 sqM) Glucose (74-99) mg/dL Lactic Ac Sepsis Rflx Y Plasma Lactic Acid Som (0.7-2.0) mmol/L Calcium (8.4-10.2) mg/dL Total Bilirubin (0.2-1.3) mg/dL AST (14-36) U/L ALT (4-34) U/L Alkaline Phosphatase (38-126) U/L Total Protein (6.3-8.2) g/dL Albumin (3.5-5.0) g/dL Lipase (23-300) U/L Urine Color Yellow Urine Appearance Cloudy H (Clear) Urine pH 7.0 (5.0-8.0) Ur Specific [place] 1.020 (1.001-1.035) Urine Protein 1+ H (Negative) Urine Glucose (UA) Negative (Negative) Urine Ketones Negative (Negative) Urine Blood Small H (Negative) Urine Nitrite Negative (Negative) Urine Bilirubin Negative (Negative) Urine Urobilinogen <2.0 (<2.0) mg/dL Ur Leukocyte Esterase Large H (Negative) Urine RBC 8 H (0-5) /hpf Urine WBC 34 H (0-5) /hpf Ur Squamous Epith Cells 66 H (0-4) /hpf - EKG Data -: EKG Interpreted by Oh EKG Comments: EKG reveals normal sinus rhythm with diffusely inverted T waves in all leads. Ventricular rate 69 bpm, MT interval 139, QRS duration 74, QT/QTc 425/444 Disposition Clinical Impression: Hyperkalemia, Ileus Disposition: ADMITTED IP TO THIS HOSP Referrals: Dwayne Delvalle DO [Primary Care Provider] - 1-2 days Time of Disposition: 18:16
[2024-04-23 15:08] LABS: Basophils # (A) 0.1 k/uL (0-0.2); Basophils % (A) 0 %; Eosinophils # (A) 0.2 k/uL (0-0.7); Eosinophils % (A) 1 %; HGB 14.5 gm/dL (11.4-16.0); Lymphocytes # (A) 1.4 k/uL (1.0-4.8); Lymphocytes % (A) 9 %; MCH 34.1 pg (25.0-35.0); MCHC 32.2 g/dL (31.0-37.0); MCV 106.1 fL (80.0-100.0); Macrocytosis Moderate; Mean Platelet Volume 8.1; Monocytes # (A) 0.7 k/uL (0-1.0); Monocytes % (A) 4 %; Neutrophils # (A) 13.8 k/uL (1.3-7.7); Neutrophils % (A) 85 %; Platelet Count 218 k/uL (150-450); RBC 4.24 m/uL (3.80-5.40); RDW 12.8 % (11.5-15.5); WBC 16.3 k/uL (3.8-10.6)
[2024-04-23 15:23] LABS: ALT 21 U/L (4-34); African American GFR (CKD) >90 (>60 ml/min/1.73 sqM); Anion Gap 7 mmol/L; Blood Urea Nitrogen 15 mg/dL (7-17); Calcium 8.8 mg/dL (8.4-10.2); Carbon Dioxide 23 mmol/L (22-30); Chloride 99 mmol/L (98-107); Lipase 61 U/L (23-300); Non-African American GFR(CKD) >90 (>60 ml/min/1.73 sqM); Sodium 129 mmol/L (137-145)
[2024-04-23] MEDS: MORPHINE SULFATE 2 MG/ML SYRINGE IVP ONE (15:30)
[2024-04-23] MEDS: ONDANSETRON 4 MG/2 ML VIAL IVP STA (15:31)
[2024-04-23 15:40] LABS: Glucose 105 mg/dL (74-99); Potassium 6.2 mmol/L (3.5-5.1); Total Protein 6.8 g/dL (6.3-8.2)
[2024-04-23 15:41] LABS: AST 77 U/L (14-36); Albumin 4.2 g/dL (3.5-5.0); Alkaline Phosphatase 56 U/L (38-126); Total Bilirubin 1.3 mg/dL (0.2-1.3)
--- NOTE | 2024-04-23 16:32 | CT ---
EXAMINATION TYPE: CT abdomen pelvis w con DATE OF EXAM: 04/23/2024 COMPARISON: 11/13/2016 INDICATION: RLQ pain DLP: 301 mGycm, Automated exposure control for dose reduction was used. CONTRAST: 80 mL of Isovue 300. Study performed without Oral Contrast TECHNIQUE: Axial images were obtained from above the diaphragm to the pubic rami in the axial plane a t 5 mm thick sections. Reconstructed images are reviewed on the computer in the coronal plane. FINDINGS: Limited CT sections are obtained the lung bases. Minimal infiltrate may be the posterior left lung b ase.. CT ABDOMEN: Liver: Subtle prominence of biliary tree may be present. Spleen: Normal Pancreas: Atrophic. Mild prominence of the pancreatic duct tail of the pancreas is present. Adrenal glands: The adrenal glands are normal. Gallbladder: Normal Kidneys: No masses are evident. No hydronephrosis is present. No cysts are present. No obvious radha al calcifications evident. Aorta: Vascular calcification is within the aorta. Inferior vena cava: Normal. CT PELVIS: Loops of bowel within the abdomen and pelvis are normal. There are nonspecific fluid-filled small debbi wel loops. Suspicious dilated loops of bowel noted. There are loops of bowel which are incompletely distended or lack oral contrast limiting their evaluation. Appendix: Not identified. No dilated tubular structure or inflammatory changes evident. Urinary bladder: Normal. Genitourinary structures: Uterus appears unremarkable. Adnexa appear within normal limits Osseous structures: No suspicious lytic or sclerotic lesions. IMPRESSION: 1. Nonspecific bowel findings. Fluid-filled small bowel loops may be of the right lower quadrant. Co nsider ileus within the differential. 2. Nonvisualization of the appendix during this exam. Clinical management of any suspected appendicit is will be required.
[2024-04-23 16:46] LABS: Appearance,Urine Cloudy (Clear); Bilirubin,Urine Negative (Negative); Blood,Urine Small (Negative); Color,Urine Yellow; Glucose,Urine (UA) Negative (Negative); Ketones,Urine Negative (Negative); Leukocyte Esterase,Urine Large (Negative); Nitrite,Urine Negative (Negative); Protein,Urine 1+ (Negative); RBC,Urine 8 /hpf (0-5); Squamous Epithelial Cell,Urine 66 /hpf (0-4); Urobilinogen,Urine <2.0 mg/dL (<2.0); WBC,Urine 34 /hpf (0-5)
[2024-04-23] MEDS: SODIUM BICARB 8.4% 50 ML SYR (1 MEQ/ML) IV ONE (18:06)
[2024-04-23] MEDS: DEXTROSE 50% SYRINGE 50 ML IVP ONE (18:06)
[2024-04-23] MEDS ORDERED: NALOXONE 0.4 MG/ML 1 ML VIAL IV PRN (18:13)
[2024-04-23] MEDS: INSULIN REGULAR 100 UNIT/ML VIAL (IV) IV ONE (18:37)
--- NOTE | 2024-04-23 22:51 | P.GSCN ---
History of Present Illness Consult date: 04/23/24 History of present illness: Medications and Allergies Home Medications Medication Instructions Recorded Confirmed Type Hydroxychloroquine Sulfate 200 mg PO DAILY 03/02/14 04/23/24 History [Plaquenil] Folic Acid 1 mg PO DAILY 08/05/20 04/23/24 History atenoloL 12.5 mg PO DAILY 08/05/20 04/23/24 History FLUoxetine HCL [PROzac] 20 mg PO DAILY 04/10/22 04/23/24 History amLODIPine [Norvasc] 5 mg PO DAILY 04/10/22 04/23/24 History ALPRAZolam [Xanax] 0.25 mg PO DAILY PRN 04/23/24 04/23/24 History Cyclobenzaprine [Flexeril] 10 mg PO DAILY PRN 04/23/24 04/23/24 History HYDROcodone/APAP 5-325MG [[place] 1 tab PO TID PRN 04/23/24 04/23/24 History 5-325] Levothyroxine Sodium [Synthroid] 100 mcg PO DAILY 04/23/24 04/23/24 History Losartan [Cozaar] 50 mg PO DAILY 04/23/24 04/23/24 History Rosuvastatin Calcium [Crestor] 5 mg PO DAILY 04/23/24 04/23/24 History Allergies Allergy/AdvReac Type Severity Reaction Status Date / Time nitrofurantoin AdvReac Nausea & Verified 04/23/24 15:32 [From Macrobid] Vomiting & Diarrhea Surgical - Exam Vital Signs Temp Pulse Resp BP Pulse Ox 97.6 F 69 18 116/50 96 04/23/24 13:28 04/23/24 13:28 04/23/24 13:28 04/23/24 13:28 04/23/24 13:28 Results - Labs 04/23/24 19:00 Abnormal Lab Results - Last 24 Hours (Table) 04/23/24 04/23/24 04/23/24 Range/Units 14:45 14:45 14:45 WBC 16.3 H (3.8-10.6) k/uL MCV 106.1 H (80.0-100.0) fL Neutrophils # 13.8 H (1.3-7.7) k/uL Sodium 129 L (137-145) mmol/L Potassium 6.2 H* (3.5-5.1) mmol/L Glucose 105 H (74-99) mg/dL Plasma Lactic Acid Som 2.3 H* (0.7-2.0) mmol/L AST 77 H (14-36) U/L Urine Appearance (Clear) Urine Protein (Negative) Urine Blood (Negative) Ur Leukocyte Esterase (Negative) Urine RBC (0-5) /hpf Urine WBC (0-5) /hpf Ur Squamous Epith Cells (0-4) /hpf 04/23/24 04/23/24 Range/Units 16:27 17:48 WBC (3.8-10.6) k/uL MCV (80.0-100.0) fL Neutrophils # (1.3-7.7) k/uL Sodium (137-145) mmol/L Potassium (3.5-5.1) mmol/L Glucose (74-99) mg/dL Plasma Lactic Acid Som 2.3 H* (0.7-2.0) mmol/L AST (14-36) U/L Urine Appearance Cloudy H (Clear) Urine Protein 1+ H (Negative) Urine Blood Small H (Negative) Ur Leukocyte Esterase Large H (Negative) Urine RBC 8 H (0-5) /hpf Urine WBC 34 H (0-5) /hpf Ur Squamous Epith Cells 66 H (0-4) /hpf Diabetes panel 04/23/24 04/23/24 Range/Units 14:45 19:00 Sodium 129 L (137-145) mmol/L Potassium 6.2 H* 5.1 (3.5-5.1) mmol/L Chloride 99 (98-107) mmol/L Carbon Dioxide 23 (22-30) mmol/L BUN 15 (7-17) mg/dL Creatinine 0.69 (0.52-1.04) mg/dL Glucose 105 H (74-99) mg/dL Calcium 8.8 (8.4-10.2) mg/dL AST 77 H (14-36) U/L ALT 21 (4-34) U/L Alkaline Phosphatase 56 (38-126) U/L Total Protein 6.8 (6.3-8.2) g/dL Albumin 4.2 (3.5-5.0) g/dL Calcium panel 04/23/24 Range/Units 14:45 Calcium 8.8 (8.4-10.2) mg/dL Albumin 4.2 (3.5-5.0) g/dL Pituitary panel 04/23/24 04/23/24 Range/Units 14:45 19:00 Sodium 129 L (137-145) mmol/L Potassium 6.2 H* 5.1 (3.5-5.1) mmol/L Chloride 99 (98-107) mmol/L Carbon Dioxide 23 (22-30) mmol/L BUN 15 (7-17) mg/dL Creatinine 0.69 (0.52-1.04) mg/dL Glucose 105 H (74-99) mg/dL Calcium 8.8 (8.4-10.2) mg/dL Adrenal panel 04/23/24 04/23/24 Range/Units 14:45 19:00 Sodium 129 L (137-145) mmol/L Potassium 6.2 H* 5.1 (3.5-5.1) mmol/L Chloride 99 (98-107) mmol/L Carbon Dioxide 23 (22-30) mmol/L BUN 15 (7-17) mg/dL Creatinine 0.69 (0.52-1.04) mg/dL Glucose 105 H (74-99) mg/dL Calcium 8.8 (8.4-10.2) mg/dL Total Bilirubin 1.3 (0.2-1.3) mg/dL AST 77 H (14-36) U/L ALT 21 (4-34) U/L Alkaline Phosphatase 56 (38-126) U/L Total Protein 6.8 (6.3-8.2) g/dL Albumin 4.2 (3.5-5.0) g/dL CHIEF COMPLAINT: Ileus with abdominal pain, right lower quadrant. HISTORY OF PRESENT ILLNESS: The patient is a 64 year old female who comes in with 1 day history of right lower quadrant abdominal pain. She reports having multiple abdominal surgeries in the past including partial gastrectomy reconstruction for ulcer disease. Patient has had recent workup with her wirer helper 1 month ago she states was completely clear including colonoscopy. She reports acute onset right lower quadrant abdominal pain that started last night less than 24 hours ago. She reports still having her appendix. No reports of blood in stools. No intractable nausea and vomiting. Overall, monitor symptoms. No acute surgical intervention at this time. Care plan described with patient which shared decision making performed. PAST MEDICAL HISTORY: See list and reviewed PAST SURGICAL HISTORY: See list and reviewed MEDICATIONS: See list and reviewed ALLERGIES: See list and reviewed SOCIAL HISTORY: See list and reviewed FAMILY HISTORY: See list and reviewed REVIEW OF ORGAN SYSTEMS: CONSTITUTIONAL: No fevers or chills. No recent weight loss. Underweight, BMI 14.4. EYES: Denies any trouble with vision. No glasses. HEENT: No difficulties with hearing. No nosebleeds. No difficulty swallowing. RESPIRATORY: Denies pneumonia. Denies any troubles with breathing or dyspnea on exertion. CARDIOVASCULAR: Hypertensive heart disease. Hyperlipidemia. GASTROINTESTINAL: History of partial gastrectomy with [id number]-Y reconstruction for ulcer disease. Reports recent colonoscopy and diagnostic studies with GI provider 1 month ago. GENITOURINARY: Denies any blood in urine or increased urinary frequency. NEUROLOGICAL: Chronic pain syndrome. MUSCULOSKELETAL: Has back pain, stiffness or joint arthritis. Has rheumatoid arthritis SKIN: No current skin cancer. No rash. PSYCHIATRIC: Has generalized anxiety disorder. ENDOCRINE: Has hypothyroidism. HEME/LYMPHATIC: Denies any lumps and bumps around the neck. No recent deep venous thrombosis. ALLERGY/IMMUNOLOGY: No immunoglobulin therapy. No immune deficiencies. BREAST: Denies current breast lumps, pain or nipple discharge. PHYSICAL EXAM: VITALS: Reviewed CONSTITUTIONAL: Well developed and in no acute distress. Nontoxic in appearance. EYES: Conjuctivae without sclera icterus. Extraocular movements grossly intact. HEAD, EARS, NOSE, THROAT: Moist buccal mucosa. Head is atraumatic, normocephalic. Hears conversational speech. No nasal drainage. NECK: Supple. No JV distention. No thyroidomegaly. RESPIRATORY: Non-labored respirations and equal bilateral excursions. No gross wheezes. CARDIOVASCULAR: Palpable 2+ radial pulses. ABDOMEN: Scaphoid. Nondistended. Point tenderness right lower quadrant. LYMPH: No neck lymphadenopathy. MUSCULOSKELETAL: No clubbing cyanosis or edema SKIN: Warm and well perfused with good skin turgor. NEUROLOGIC: Cranial nerves II through XII grossly intact. No focal or latera lizing signs. PSYCH: Appropriate affect. Alert and oriented to person, place and time. Displays appropriate insight. CLINCAL LABS: Reviewed. WBC elevated at 16,000. IMAGING: Independently reviewed. CT of the abdomen pelvis independently reviewed demonstrates limited study due to none contrast oral or IV. No free air. No obvious bowel obstruction. Scoliosis of the spine. This is my inde pendent interpretation. RADIOLOGY: Report reviewed demonstrating ileus on CT abdomen pelvis. ASSESSMENT: 1. Abnormal CT scan for ileus 2. Right lower quadrant abdominal pain 3. History of partial gastrectomy with reconstruction 4. Underweight, BMI 14.4 5. Lactic acidosis 6. Hyponatremia 7. Hyperkalemia PLAN: 1. IV fluid hydration. 2. Overall, monitor symptoms. 3. No acute surgical intervention at this time. 4. May benefit from additional studies. 5. Care plan described with patient which shared decision making performed regarding hospital observation, possible additional studies. ADVANCE DIRECTIVE: CODE STATUS in chart yeison you for this kind consultation. Past Medical History Past Medical History: COPD, Hypertension, Thyroid Disorder Additional Past Medical History / Comment(s): hx lupus, frequent diarrhea & gas, minor aortic stenosis-follows w/[facility], frequent UTI's History of Any Multi-Drug Resistant Organisms: None Reported Past Surgical History: Breast Surgery, Tonsillectomy Additional Past Surgical History / Comment(s): EGD's, part of stomach removed related to ulcers, left lung surg-removed small part related to bleb,. COLONOSCOPY. RT CAROTID ENDARTERECTOMY,. BREAST AUGMENTATION X 4 Past Anesthesia/Blood Transfusion Reactions: Previous Problems w/ Anesthesia Additional Past Anesthesia/Blood Transfusion Reaction / Comm: some kind of problem after stomach surgery, "got too much", & aggravated lupus which affected lungs Past Psychological History: No Psychological Hx Reported Smoking Status: Current every day smoker Past Alcohol Use History: None Reported Past Drug Use History: None Reported - Past Family History Father Family Medical History: Cancer Medications and Allergies Home Medications Medication Instructions Recorded Confirmed Type Hydroxychloroquine Sulfate 200 mg PO DAILY 03/02/14 04/23/24 History [Plaquenil] Folic Acid 1 mg PO DAILY 08/05/20 04/23/24 History atenoloL 12.5 mg PO DAILY 08/05/20 04/23/24 History FLUoxetine HCL [PROzac] 20 mg PO DAILY 04/10/22 04/23/24 History amLODIPine [Norvasc] 5 mg PO DAILY 04/10/22 04/23/24 History ALPRAZolam [Xanax] 0.25 mg PO DAILY PRN 04/23/24 04/23/24 History Cyclobenzaprine [Flexeril] 10 mg PO DAILY PRN 04/23/24 04/23/24 History HYDROcodone/APAP 5-325MG [[place] 1 tab PO TID PRN 04/23/24 04/23/24 History 5-325] Levothyroxine Sodium [Synthroid] 100 mcg PO DAILY 04/23/24 04/23/24 History Losartan [Cozaar] 50 mg PO DAILY 04/23/24 04/23/24 History Rosuvastatin Calcium [Crestor] 5 mg PO DAILY 04/23/24 04/23/24 History Allergies Allergy/AdvReac Type Severity Reaction Status Date / Time nitrofurantoin AdvReac Nausea & Verified 04/23/24 15:32 [From Macrobid] Vomiting & Diarrhea Surgical - Exam Vital Signs Temp Pulse Resp BP Pulse Ox 97.6 F 69 18 116/50 96 04/23/24 13:28 04/23/24 13:28 04/23/24 13:28 04/23/24 13:28 04/23/24 13:28 Results - Labs 04/24/24 10:27 04/24/24 10:27 Abnormal Lab Results - Last 24 Hours (Table) 04/23/24 04/23/24 04/23/24 Range/Units 14:45 14:45 14:45 WBC 16.3 H (3.8-10.6) k/uL MCV 106.1 H (80.0-100.0) fL Neutrophils # 13.8 H (1.3-7.7) k/uL Sodium 129 L (137-145) mmol/L Potassium 6.2 H* (3.5-5.1) mmol/L Glucose 105 H (74-99) mg/dL Plasma Lactic Acid Som 2.3 H* (0.7-2.0) mmol/L AST 77 H (14-36) U/L Urine Appearance (Clear) Urine Protein (Negative) Urine Blood (Negative) Ur Leukocyte Esterase (Negative) Urine RBC (0-5) /hpf Urine WBC (0-5) /hpf Ur Squamous Epith Cells (0-4) /hpf 04/23/24 04/23/24 Range/Units 16:27 17:48 WBC (3.8-10.6) k/uL MCV (80.0-100.0) fL Neutrophils # (1.3-7.7) k/uL Sodium (137-145) mmol/L Potassium (3.5-5.1) mmol/L Glucose (74-99) mg/dL Plasma Lactic Acid Som 2.3 H* (0.7-2.0) mmol/L AST (14-36) U/L Urine Appearance Cloudy H (Clear) Urine Protein 1+ H (Negative) Urine Blood Small H (Negative) Ur Leukocyte Esterase Large H (Negative) Urine RBC 8 H (0-5) /hpf Urine WBC 34 H (0-5) /hpf Ur Squamous Epith Cells 66 H (0-4) /hpf Diabetes panel 04/23/24 04/23/24 Range/Units 14:45 19:00 Sodium 129 L (137-145) mmol/L Potassium 6.2 H* 5.1 (3.5-5.1) mmol/L Chloride 99 (98-107) mmol/L Carbon Dioxide 23 (22-30) mmol/L BUN 15 (7-17) mg/dL Creatinine 0.69 (0.52-1.04) mg/dL Glucose 105 H (74-99) mg/dL Calcium 8.8 (8.4-10.2) mg/dL AST 77 H (14-36) U/L ALT 21 (4-34) U/L Alkaline Phosphatase 56 (38-126) U/L Total Protein 6.8 (6.3-8.2) g/dL Albumin 4.2 (3.5-5.0) g/dL Calcium panel 04/23/24 Range/Units 14:45 Calcium 8.8 (8.4-10.2) mg/dL Albumin 4.2 (3.5-5.0) g/dL Pituitary panel 04/23/24 04/23/24 Range/Units 14:45 19:00 Sodium 129 L (137-145) mmol/L Potassium 6.2 H* 5.1 (3.5-5.1) mmol/L Chloride 99 (98-107) mmol/L Carbon Dioxide 23 (22-30) mmol/L BUN 15 (7-17) mg/dL Creatinine 0.69 (0.52-1.04) mg/dL Glucose 105 H (74-99) mg/dL Calcium 8.8 (8.4-10.2) mg/dL Adrenal panel 04/23/24 04/23/24 Range/Units 14:45 19:00 Sodium 129 L (137-145) mmol/L Potassium 6.2 H* 5.1 (3.5-5.1) mmol/L Chloride 99 (98-107) mmol/L Carbon Dioxide 23 (22-30) mmol/L BUN 15 (7-17) mg/dL Creatinine 0.69 (0.52-1.04) mg/dL Glucose 105 H (74-99) mg/dL Calcium 8.8 (8.4-10.2) mg/dL Total Bilirubin 1.3 (0.2-1.3) mg/dL AST 77 H (14-36) U/L ALT 21 (4-34) U/L Alkaline Phosphatase 56 (38-126) U/L Total Protein 6.8 (6.3-8.2) g/dL Albumin 4.2 (3.5-5.0) g/dL
[2024-04-23] MEDS ORDERED: ACETAMINOPHEN TAB 325 MG TAB PO PRN (22:53)
[2024-04-23] MEDS ORDERED: ALPRAZolam 0.25 MG TAB PO PRN (22:57)
[2024-04-23] MEDS ORDERED: CYCLOBENZAPRINE 10 MG TAB PO PRN (22:57)
--- NOTE | 2024-04-23 22:59 | P.HPIM ---
History of Present Illness H&P Date: 04/23/24 Patient is a 64-year-old female with a PMH of COPD, hypertension, hypothyroidism who presents to the emergency room with complaints of right lower quadrant abdominal discomfort. Patient reports that her pain started around 1 AM this morning, 10 out of 10 at maximal intensity, stabbing and sharp in nature in her right lower quadrant, with some radiation into the back. Does report some episodes of diarrhea as well as nausea without vomiting. To a 6 out of 10 at the time of interview. Denies any additional complaints. Denies experiencing chest discomfort, shortness of breath, dysuria, fever, chills, cough. CT abdomen and pelvis in the emergency room was unremarkable. EKG revealed sinus rhythm at 69 bpm with diffuse T wave inversions as reviewed by me. Laboratory evaluation was remarkable for lactic acid of 2.3, WBC count 16.3, MCV 106.1, sodium 129, potassium 5.1, AST 77, with UA contaminated. ED documentation reviewed and case discussed with ED provider. Review of systems: Pertinent positives and negatives as discussed in HPI, a complete review of systems was performed and all other systems are negative. Physical examination: Vital signs reviewed General: non toxic, no distress, appears older than stated age, cachectic Derm: no unusual rashes/lesions, warm Head: atraumatic, normocephalic, symmetric Eyes: EOMI, no lid lag, anicteric sclera, pupils equal round reactive to light ENT: Nose and ears atraumatic Neck: No cervical lymphadenopathy, trachea midline, supple Mouth: no lip lesion, mucus membranes moist Cardiovascular: S1S2 reg, grade 3 systolic murmur appreciated, positive dorsalis pedis pulse bilateral, no edema Lungs: CTA bilateral, no rhonchi, no rales, no accessory muscle use Abdominal: soft, right lower quadrant tenderness with some guarding Ext: muscle strength 5 out of 5 in all 4 extremities grossly, no gross muscle atrophy, no contractures, Neuro: CN II-XI grossly intact, no gross focal neuro deficits Psych: Alert, oriented, appropriate affect Assessment: Right lower quadrant abdominal tenderness, rule out appendicitis Lactic acidosis Hyperkalemia, likely due to hemolyzed specimen Hyponatremia, suspect SIADH due to pain Systolic murmur Chronic conditions: COPD, hypertension, hypothyroidism Imaging: CT abdomen and pelvis in the emergency room was unremarkable. EKG revealed sinus rhythm at 69 bpm with diffuse T wave inversions as reviewed by me. Data Review: Laboratory evaluation was remarkable for lactic acid of 2.3, WBC count 16.3, MCV 106.1, sodium 129, potassium 5.1, AST 77, with UA contaminated. Plan: Reports the pain has not improved General surgery consulted Initiate IV fluids normal saline 75 cc/h Monitor lactic acid levels for resolution Monitor BMP Resume home medications once reconciled Patient notes she has been following with Dr Overton for her murmur DVT prophylaxis: Lovenox subcu The patient is admitted with an anticipated less than 2 midnight stay for evaluation of RLQ abd pain CODE STATUS: Full Code Discussed with: Patient Anticipated discharge place: Home Past Medical History Past Medical History: COPD, Hypertension, Thyroid Disorder Additional Past Medical History / Comment(s): hx lupus, frequent diarrhea & gas, minor aortic stenosis-follows w/Tian, frequent UTI's History of Any Multi-Drug Resistant Organisms: None Reported Past Surgical History: Breast Surgery, Tonsillectomy Additional Past Surgical History / Comment(s): EGD's, part of stomach removed related to ulcers, left lung surg-removed small part related to bleb,. COLONOSCOPY. RT CAROTID ENDARTERECTOMY,. BREAST AUGMENTATION X 4 Past Anesthesia/Blood Transfusion Reactions: Previous Problems w/ Anesthesia Additional Past Anesthesia/Blood Transfusion Reaction / Comment(s): some kind of problem after stomach surgery, "got too much", & aggravated lupus which affected lungs Past Psychological History: No Psychological Hx Reported Smoking Status: Current every day smoker Past Alcohol Use History: None Reported Past Drug Use History: None Reported - Past Family History Father Family Medical History: Cancer Medications and Allergies Home Medications Medication Instructions Recorded Confirmed Type Hydroxychloroquine Sulfate 200 mg PO DAILY 03/02/14 04/23/24 History [Plaquenil] Folic Acid 1 mg PO DAILY 08/05/20 04/23/24 History atenoloL 12.5 mg PO DAILY 08/05/20 04/23/24 History FLUoxetine HCL [PROzac] 20 mg PO DAILY 04/10/22 04/23/24 History amLODIPine [Norvasc] 5 mg PO DAILY 04/10/22 04/23/24 History ALPRAZolam [Xanax] 0.25 mg PO DAILY PRN 04/23/24 04/23/24 History Cyclobenzaprine [Flexeril] 10 mg PO DAILY PRN 04/23/24 04/23/24 History HYDROcodone/APAP 5-325MG [[place] 1 tab PO TID PRN 04/23/24 04/23/24 History 5-325] Levothyroxine Sodium [Synthroid] 100 mcg PO DAILY 04/23/24 04/23/24 History Losartan [Cozaar] 50 mg PO DAILY 04/23/24 04/23/24 History Rosuvastatin Calcium [Crestor] 5 mg PO DAILY 04/23/24 04/23/24 History Allergies Allergy/AdvReac Type Severity Reaction Status Date / Time nitrofurantoin AdvReac Nausea & Verified 04/23/24 15:32 [From Macrobid] Vomiting & Diarrhea Physical Exam Vitals: Vital Signs Temp Pulse Resp BP Pulse Ox 04/23/24 15:21 69 18 164/53 96 04/23/24 13:28 97.6 F 69 18 116/50 96 Intake and Output 04/23/24 04/23/24 04/23/24 06:59 14:59 22:59 Other: Weight 35.834 kg Results CBC & Chem 7: 04/23/24 14:45 04/23/24 19:00 Labs: Abnormal Lab Results - Last 24 Hours (Table) 04/23/24 04/23/24 04/23/24 Range/Units 14:45 14:45 14:45 WBC 16.3 H (3.8-10.6) k/uL MCV 106.1 H (80.0-100.0) fL Neutrophils # 13.8 H (1.3-7.7) k/uL Sodium 129 L (137-145) mmol/L Potassium 6.2 H* (3.5-5.1) mmol/L Glucose 105 H (74-99) mg/dL Plasma Lactic Acid Som 2.3 H* (0.7-2.0) mmol/L AST 77 H (14-36) U/L Urine Appearance (Clear) Urine Protein (Negative) Urine Blood (Negative) Ur Leukocyte Esterase (Negative) Urine RBC (0-5) /hpf Urine WBC (0-5) /hpf Ur Squamous Epith Cells (0-4) /hpf 04/23/24 04/23/24 Range/Units 16:27 17:48 WBC (3.8-10.6) k/uL MCV (80.0-100.0) fL Neutrophils # (1.3-7.7) k/uL Sodium (137-145) mmol/L Potassium (3.5-5.1) mmol/L Glucose (74-99) mg/dL Plasma Lactic Acid Som 2.3 H* (0.7-2.0) mmol/L AST (14-36) U/L Urine Appearance Cloudy H (Clear) Urine Protein 1+ H (Negative) Urine Blood Small H (Negative) Ur Leukocyte Esterase Large H (Negative) Urine RBC 8 H (0-5) /hpf Urine WBC 34 H (0-5) /hpf Ur Squamous Epith Cells 66 H (0-4) /hpf
[2024-04-23] MEDS: SODIUM CHLORIDE 0.9% 1,000 ML IV SCH (23:17)
[2024-04-24 06:04] VITALS: RESP 16
[2024-04-24] MEDS: HYDROcodone/APAP 5-325MG 1 EACH TAB PO PRN (06:08)
[2024-04-24] MEDS: LEVOTHYROXINE 100 MCG TAB PO SCH (06:08)
[2024-04-24] MEDS: atenoloL 25 MG TAB PO SCH (08:41)
[2024-04-24] MEDS: amLODIPine 5 MG TAB PO SCH (08:41)
[2024-04-24] MEDS: ATORVASTATIN 10 MG TAB PO SCH (08:41)
[2024-04-24] MEDS: FLUoxetine HCL 20 MG CAP PO SCH (08:41)
[2024-04-24] MEDS: FOLIC ACID 1 MG TAB PO SCH (08:41)
[2024-04-24] MEDS: LOSARTAN 50 MG TAB PO SCH (08:41)
[2024-04-24] MEDS: HYDROXYCHLOROQUINE SULFATE 200 MG TAB PO SCH (08:41)
[2024-04-24] MEDS: ENOXAPARIN 40 MG/0.4 ML SYRINGE SQ SCH (08:41)
--- NOTE | 2024-04-24 10:32 | P.PN ---
Subjective Progress Note Date: 04/24/24 CHIEF COMPLAINT: Abdominal pain HISTORY OF PRESENT ILLNESS: This is a 64-year-old female present with right lower quadrant abdominal pain. CT scan had shown evidence of ileus. Patient does report burning with urination. She is having flatus. She recently was treated for UTI. Patient reports that the right lower quadrant abdominal pain is less today than yesterday. Patient is tolerating water. Afebrile. Labs for today pending. Urine culture pending. Lactic acid 2.3-1.8. Potassium 6.2 down to 5.1 PHYSICAL EXAM: VITAL SIGNS: Reviewed GENERAL: Well-developed in no acute distress. HEENT: No sclera icterus. Extraocular movements grossly intact. Moist buccal mucosa. Head is atraumatic, normocephalic. Hears conversational speech. No nasal drainage. NECK: Supple without lymphadenopathy. CHEST: Non-labored respirations and equal bilateral excursions. CARDIOVASCULAR: Palpable 2+ radial pulses. ABDOMEN: Soft. Nondistended. Tenderness to the right lower quadrant with palpation MUSCULOSKELETAL: No clubbing or cyanosis. NEUROLOGIC: No focal or lateralizing signs. Cranial nerves II through XII grossly intact. PSYCH: Appropriate affect. Alert and oriented to person, place and time. SKIN: Well perfused. Good skin turgor. ASSESSMENT: 1. Right lower quadrant abdominal pain 2. Possible abdominal ileus 3. Hyponatremia 4. Hyperkalemia improved 5. Elevated lactic acid PLAN: -CT scan abdomen pelvis with oral contrast ordered for further evaluation of right lower quadrant abdominal pain -Advance diet to clear liquids. Educated patient if pain increases to go back to not eating or drinking -Follow-up on lab results Physician Instructor Weaving note has been reviewed by physician. Signing provider agrees with the documented findings, assessment, and plan of care. Please see additional documentation below: As initial CT of the abdomen pelvis was limited due to lack of oral or IV contrast and patient's minimal body fat, may benefit from repeat CT scan with oral contrast. IV contrast avoided at this time due to lactic acidosis and need for IV fluid hydration. Objective - Vital Signs Vital signs: Vital Signs Temp 98.2 F 04/24/24 07:00 Pulse 66 04/24/24 07:00 Resp 16 04/24/24 07:00 BP 145/52 04/24/24 07:00 Pulse Ox 96 04/24/24 07:00 FiO2 Intake & Output 04/23/24 04/24/24 04/24/24 18:59 06:59 18:59 Intake Total 355 Balance 355 Weight 35.834 kg 35.834 kg Intake: Oral 355 Other: # Voids 3 - Labs CBC & Chem 7: 04/24/24 10:27 04/24/24 10:27 Labs: Abnormal Lab Results - Last 24 Hours (Table) 04/23/24 04/23/24 04/23/24 Range/Units 14:45 14:45 14:45 WBC 16.3 H (3.8-10.6) k/uL MCV 106.1 H (80.0-100.0) fL Neutrophils # 13.8 H (1.3-7.7) k/uL Sodium 129 L (137-145) mmol/L Potassium 6.2 H* (3.5-5.1) mmol/L Glucose 105 H (74-99) mg/dL Plasma Lactic Acid Som 2.3 H* (0.7-2.0) mmol/L AST 77 H (14-36) U/L Urine Appearance (Clear) Urine Protein (Negative) Urine Blood (Negative) Ur Leukocyte Esterase (Negative) Urine RBC (0-5) /hpf Urine WBC (0-5) /hpf Ur Squamous Epith Cells (0-4) /hpf 04/23/24 04/23/24 Range/Units 16:27 17:48 WBC (3.8-10.6) k/uL MCV (80.0-100.0) fL Neutrophils # (1.3-7.7) k/uL Sodium (137-145) mmol/L Potassium (3.5-5.1) mmol/L Glucose (74-99) mg/dL Plasma Lactic Acid Som 2.3 H* (0.7-2.0) mmol/L AST (14-36) U/L Urine Appearance Cloudy H (Clear) Urine Protein 1+ H (Negative) Urine Blood Small H (Negative) Ur Leukocyte Esterase Large H (Negative) Urine RBC 8 H (0-5) /hpf Urine WBC 34 H (0-5) /hpf Ur Squamous Epith Cells 66 H (0-4) /hpf
[2024-04-24 11:14] LABS: African American GFR (CKD) >90 (>60 ml/min/1.73 sqM); Anion Gap 5 mmol/L; Basophils # (A) 0.1 k/uL (0-0.2); Basophils % (A) 0 %; Blood Urea Nitrogen 15 mg/dL (7-17); Carbon Dioxide 24 mmol/L (22-30); Chloride 104 mmol/L (98-107); Eosinophils # (A) 0.1 k/uL (0-0.7); Eosinophils % (A) 0 %; Glucose 72 mg/dL (74-99); HCT 44.1 % (34.0-46.0); HGB 13.6 gm/dL (11.4-16.0); Lymphocytes # (A) 1.9 k/uL (1.0-4.8); Lymphocytes % (A) 11 %; MCH 33.1 pg (25.0-35.0); MCHC 30.9 g/dL (31.0-37.0); Macrocytosis Moderate; Mean Platelet Volume 8.7; Monocytes # (A) 0.8 k/uL (0-1.0); Monocytes % (A) 5 %; Neutrophils # (A) 14.5 k/uL (1.3-7.7); Neutrophils % (A) 82 %; Non-African American GFR(CKD) >90 (>60 ml/min/1.73 sqM); Platelet Count 213 k/uL (150-450); Potassium 4.2 mmol/L (3.5-5.1); RBC 4.12 m/uL (3.80-5.40); RDW 13.1 % (11.5-15.5); Sodium 133 mmol/L (137-145); WBC 17.6 k/uL (3.8-10.6)
[2024-04-24] MEDS: IOPAMIDOL CONTRAST (ORAL USE) VIAL PO PRN (11:34)
[2024-04-24 13:45] VITALS: BMI 14.4
--- NOTE | 2024-04-24 13:52 | CT ---
EXAMINATION TYPE: CT abdomen pelvis wo con DATE OF EXAM: 04/24/2024 COMPARISON: 04/23/2024 INDICATION: RLQ abd pain DLP: 217.90 mGycm, Automated exposure control for dose reduction was used. CONTRAST: 0 mL of Isovue 300. Study performed with Oral Contrast TECHNIQUE: Axial images were obtained from above the diaphragm to the pubic rami in the axial plane a t 5 mm thick sections. Reconstructed images are reviewed on the computer in the coronal plane. FINDINGS: Limited CT sections are obtained the lung bases. Emphysematous changes are present. Some mild pulmon tata fibrosis may be in the posterior lateral left lung base. Curvilinear densities in the posterior r ight lung base. No significant interval change from prior. CT ABDOMEN: Liver: Normal Spleen: Normal Pancreas: Normal Adrenal glands: The adrenal glands are normal. Gallbladder: Not identified Kidneys: No masses are evident. No hydronephrosis is present. No cysts are present. No renal stone s are evident. Appears to be an extrarenal pelvis on the right Aorta: Vascular calcification is within the aorta. Inferior vena cava: Normal. CT PELVIS: Small amount free fluid is within the pelvis The study is performed with oral contrast. There are prominent small bowel loops within the left mida bdomen. This extends towards the ileum. This appears to terminate in the right lower quadrant, exampl e image series 3 image 46. Some central filling defect may be present. Consider intussusception. An o bstructing mass however is not identified. Some fecal debris and air is within the ascending colon. No colonic contrast is evident. Appendix: The appendix is not identified. Urinary bladder: Contrast is present from prior examination. No suspicious filling defect evident Genitourinary structures: The uterus is less well visualized on noncontrast study. Osseous structures: No suspicious lytic or sclerotic lesions. IMPRESSION: 1. Dilated contrast-filled small bowel loops extend to the right lower quadrant. Central filling def ect at the zone of transition may be present. Consider intussusception. Partial obstruction could be considered. Consider delayed abdomen flat plate to evaluate contrast passing into the colon on delaye d image. 2. There may be a small amount of free fluid present within the pelvis. A [place] level critical message alert has been initiated for Kristi Milan MD via the [facility] Critical Results System on 04/24/2024 1:49 PM. This message alert has been sent to Kristi Stephens MD via the preferences provided by the clinician for the receipt of Radiology Critical Findi ngs. Message ID [id number].
[2024-04-24] MEDS: PIPERACILLIN-TAZOBACTAM 3.375 GM in SODIUM CHLORIDE 0.9% 100 ML IVPB SCH (15:57)
--- NOTE | 2024-04-24 16:16 | P.PN ---
Subjective Progress Note Date: 04/24/24 Patient is a 64-year-old female with a PMH of COPD, hypertension, hypothyroidism who presents to the emergency room with complaints of right lower quadrant abdominal discomfort. Patient reports that her pain started around 1 AM this morning, 10 out of 10 at maximal intensity, stabbing and sharp in nature in her right lower quadrant, with some radiation into the back. Does report some episodes of diarrhea as well as nausea without vomiting. To a 6 out of 10 at the time of interview. Denies any additional complaints. Denies experiencing chest discomfort, shortness of breath, dysuria, fever, chills, cough. CT abdomen and pelvis in the emergency room was unremarkable. EKG revealed sinus rhythm at 69 bpm with diffuse T wave inversions. Laboratory evaluation was remarkable for lactic acid of 2.3, WBC count 16.3, MCV 106.1, sodium 129, potassium 5.1, AST 77, with UA contaminated. 04/24 Patient was seen and examined. Reports 7/10 RLQ pain. No nausea or vomiting. Small BM yesterday. CBC WBC 17.6, MCV 107. BMP Na 133, glu 72, Ca 8.0. Surgery recommends repeat CT AP. General: non toxic, no distress, appears older than stated age, cachectic Derm: no unusual rashes/lesions, warm Head: atraumatic, normocephalic, symmetric Neck: No cervical lymphadenopathy, trachea midline, supple Mouth: no lip lesion, mucus membranes moist Cardiovascular: S1S2 reg, grade 3 systolic murmur appreciated, no edema Lungs: CTA bilateral, no rhonchi, no rales, no accessory muscle use Abdominal: soft, right lower quadrant tenderness with some guarding Ext: muscle strength 5 out of 5 in all 4 extremities grossly, no gross muscle atrophy, no contractures, Neuro: no gross focal neuro deficits Psych: Alert, oriented, appropriate affect Based on my assessment of this patient, this patient meets a high complexity level of care. Right lower quadrant abdominal tenderness: Repeat CT shows dilated small bowel loops, consider intussusception or partial SBO. CLD and advance as tolerated. [place] 5 TID PRN for pain. Continue Zosyn 3.75g IV TID. Continue NS 75 cc/hr. Surgery on board. Lactic acidosis: Resolved with IV hydration. Hyperkalemia: Likely due to hemolyzed specimen. Resolved. Hyponatremia, suspect SIADH due to pain: Resolving. Systolic murmur Chronic conditions: COPD, hypertension, hypothyroidism CODE STATUS: FULL CODE DVT Prophylaxis: Lovenox SQ GI Prophylaxis: Protonix IV Designated medical POA if patient is not able to make medical decisions for themselves: I have reviewed the following risk control consultant notes: Surgery note. I have reviewed the results of the following tests: CBC, BMP, CT AP. I have ordered the following tests: I have discussed the care of this patient with the following independent historian: I have independently interpreted the following test below: I have discussed the management of this patient with the following physician: Objective - Vital Signs Vital signs: Vital Signs Temp 97.9 F 04/24/24 14:39 Pulse 63 04/24/24 14:39 Resp 16 04/24/24 14:39 BP 135/52 04/24/24 14:39 Pulse Ox 96 04/24/24 14:39 FiO2 Intake & Output 04/23/24 04/24/24 04/24/24 18:59 06:59 18:59 Intake Total 710 Balance 710 Weight 35.834 kg 35.834 kg 35.834 kg Intake: Oral 710 Other: # Voids 3 1 - Labs CBC & Chem 7: 04/24/24 10:27 04/24/24 10:27 Labs: Abnormal Lab Results - Last 24 Hours (Table) 04/23/24 04/23/24 04/24/24 Range/Units 16:27 17:48 10:27 WBC 17.6 H (3.8-10.6) k/uL MCV 107.0 H (80.0-100.0) fL MCHC 30.9 L (31.0-37.0) g/dL Neutrophils # 14.5 H (1.3-7.7) k/uL Sodium (137-145) mmol/L Glucose (74-99) mg/dL Plasma Lactic Acid Som 2.3 H* (0.7-2.0) mmol/L Calcium (8.4-10.2) mg/dL Urine Appearance Cloudy H (Clear) Urine Protein 1+ H (Negative) Urine Blood Small H (Negative) Ur Leukocyte Esterase Large H (Negative) Urine RBC 8 H (0-5) /hpf Urine WBC 34 H (0-5) /hpf Ur Squamous Epith Cells 66 H (0-4) /hpf 04/24/24 Range/Units 10:27 WBC (3.8-10.6) k/uL MCV (80.0-100.0) fL MCHC (31.0-37.0) g/dL Neutrophils # (1.3-7.7) k/uL Sodium 133 L (137-145) mmol/L Glucose 72 L (74-99) mg/dL Plasma Lactic Acid Som (0.7-2.0) mmol/L Calcium 8.0 L (8.4-10.2) mg/dL Urine Appearance (Clear) Urine Protein (Negative) Urine Blood (Negative) Ur Leukocyte Esterase (Negative) Urine RBC (0-5) /hpf Urine WBC (0-5) /hpf Ur Squamous Epith Cells (0-4) /hpf
[2024-04-24 21:43] VITALS: BP 166/53; PULSE 70; TEMP 98.6
--- NOTE | 2024-04-25 07:52 | P.DS ---
Providers Date of admission: 04/23/24 18:55 Expected date of discharge: 04/25/24 Attending physician: Kay Soriano MD Consults: 04/23/24 18:13 Consult Physician Urgent Consulting Provider: Kristi Milan Consult Reason/Comments: ileus Do you want consulting provider notified?: Yes Primary care physician: [facility] Course: Patient is a 64-year-old female with a PMH of COPD, hypertension, hypothyroidism who presents to the emergency room with complaints of right lower quadrant abdominal discomfort. Patient reports that her pain started around 1 AM this morning, 10 out of 10 at maximal intensity, stabbing and sharp in nature in her right lower quadrant, with some radiation into the back. Does report some episodes of diarrhea as well as nausea without vomiting. To a 6 out of 10 at the time of interview. Denies any additional complaints. Denies experiencing chest discomfort, shortness of breath, dysuria, fever, chills, cough. CT abdomen and pelvis in the emergency room was unremarkable. EKG revealed sinus rhythm at 69 bpm with diffuse T wave inversions. Laboratory evaluation was remarkable for lactic acid of 2.3, WBC count 16.3, MCV 106.1, sodium 129, potassium 5.1, AST 77, with UA contaminated. 04/24 Patient was seen and examined. Reports 7/10 RLQ pain. No nausea or vomiting. Small BM yesterday. CBC WBC 17.6, MCV 107. BMP Na 133, glu 72, Ca 8.0. Surgery recommends repeat CT AP. Repeat CT shows dilated small bowel loops, consider intussusception or partial SBO. Patient left AMA in the evening of 04/24. Refer to progress note for physical exam. Discharge Diagnosis: Right lower quadrant abdominal tenderness: Repeat CT shows dilated small bowel loops, consider intussusception or partial SBO. Lactic acidosis Hyperkalemia Hyponatremia, suspect SIADH due to pain Systolic murmur Chronic conditions: COPD, hypertension, hypothyroidism Patient Condition at Discharge: Undetermined Plan - Discharge Summary New Discharge Prescriptions: No Action Hydroxychloroquine Sulfate [Plaquenil] 200 mg PO DAILY Folic Acid 1 mg PO DAILY atenoloL 12.5 mg PO DAILY amLODIPine [Norvasc] 5 mg PO DAILY HYDROcodone/APAP 5-325MG [[place] 5-325] 1 tab PO TID PRN PRN Reason: Pain Levothyroxine Sodium [Synthroid] 100 mcg PO DAILY Losartan [Cozaar] 50 mg PO DAILY FLUoxetine HCL [PROzac] 20 mg PO DAILY ALPRAZolam [Xanax] 0.25 mg PO DAILY PRN PRN Reason: Anxiety Cyclobenzaprine [Flexeril] 10 mg PO DAILY PRN PRN Reason: Muscle Spasm Rosuvastatin Calcium [Crestor] 5 mg PO DAILY Discharge Medication List Hydroxychloroquine Sulfate [Plaquenil] 200 mg PO DAILY 03/02/14 [History] Folic Acid 1 mg PO DAILY 08/05/20 [History] atenoloL 12.5 mg PO DAILY 08/05/20 [History] FLUoxetine HCL [PROzac] 20 mg PO DAILY 04/10/22 [History] amLODIPine [Norvasc] 5 mg PO DAILY 04/10/22 [History] ALPRAZolam [Xanax] 0.25 mg PO DAILY PRN 04/23/24 [History] Cyclobenzaprine [Flexeril] 10 mg PO DAILY PRN 04/23/24 [History] HYDROcodone/APAP 5-325MG [[place] 5-325] 1 tab PO TID PRN 04/23/24 [History] Levothyroxine Sodium [Synthroid] 100 mcg PO DAILY 04/23/24 [History] Losartan [Cozaar] 50 mg PO DAILY 04/23/24 [History] Rosuvastatin Calcium [Crestor] 5 mg PO DAILY 04/23/24 [History] Follow up Appointment(s)/Referral(s): Dwayne Delvalle DO [Primary Care Provider] - 1-2 days Discharge Disposition: LEFT AGAINST MEDICAL ADVICE
== END 2024-04-24 22:33 | disposition left against medical advice (07) ==
LOC: EC 13:18 → 1SOBS 18:55 → 6NMEDSUR 23:31
PROVIDERS: ADMIT Family Medicine; ATTEND Family Medicine
DX: R10.813 Right lower quadrant abdominal tenderness (principal); E87.5 Hyperkalemia; E87.1 Hypo-osmolality and hyponatremia; E87.20 Acidosis, unspecified; R01.1 Cardiac murmur, unspecified; I10 Essential (primary) hypertension; J44.9 Chronic obstructive pulmonary disease, unspecified; E03.9 Hypothyroidism, unspecified; F17.200 Nicotine dependence, unspecified, uncomplicated; R63.6 Underweight; Z68.1 Body mass index [BMI] 19.9 or less, adult; Z87.440 Personal history of urinary (tract) infections; Z90.49 Acquired absence of other specified parts of digestive tract; Z79.899 Other long term (current) drug therapy; Z79.890 Hormone replacement therapy; Z53.29 Procedure and treatment not carried out because of patient's decision for other reasons
CPT/HCPCS: 96365; 96366; 96372; 96375; 99285; 36415; 93005; 80053; 80048; 83605; 83690; 84132; 85025 ×2; 81001; 87086; 87077; 87186; 74176; 74177; G0378 ×2; J2543; J2405; J1650; J2270; Q9967

== ENCOUNTER → 2024-07-21 | Outpatient (CLI) | payer OTHER ==
[2024-07-21 09:37] LABS: African American GFR (CKD) >90 (>60 ml/min/1.73 sqM); Anion Gap 4 mmol/L; Blood Urea Nitrogen 14 mg/dL (7-17); Calcium 9.4 mg/dL (8.4-10.2); Carbon Dioxide 30 mmol/L (22-30); Chloride 102 mmol/L (98-107); Glucose 96 mg/dL (74-99); Non-African American GFR(CKD) >90 (>60 ml/min/1.73 sqM); Potassium 5.2 mmol/L (3.5-5.1); Sodium 136 mmol/L (137-145)
--- NOTE | 2024-07-21 11:06 | CT ---
EXAMINATION TYPE: CT urogram wo/w con DATE OF EXAM: 07/21/2024 COMPARISON: 04/24/2024 HISTORY: 64-year-old female N1 3.39, HYDRONEPHROSIS TECHNIQUE: Contiguous axial scanning of the abdomen and pelvis performed without and with IV Contrast , patient injected with 70 mL of Isovue 300. Delayed images through the kidneys and bladder were obta ined. Coronal/sagittal reconstructions performed.. A reconstructions generated on a dedicated [employer] workstation. CT DLP: 978 mGycm Automated exposure control for dose reduction was used. FINDINGS: The heart is normal size without pericardial effusion. Moderate atherosclerotic calcifications throughout the aorta and iliac arteries. Ectasia distal desce nding thoracic aorta. Moderate emphysematous change in the visualized lower lungs. Chronic subpleural nodular scarring post erior right base. Prominent patchy posterior left basilar opacity is new. No pleural effusion. There is similar dilatation of the main pancreatic duct up to 5 mm and the bile duct up to 9 mm. Mild intrahepatic biliary ductal dilatation remains unchanged as well. Portal venous system is patent. Gallbladder is not abnormally distended. Paucity of intra-abdominal fat limits evaluation Patchy hypoenhancement within the right kidney and suggestion of small cortical defects. No discrete suspicious renal mass is seen. Ongoing pelviectasis on the right though the overall degree of distention has shown some improvement, axial image 30. No calyceal dilatation. Symmetric uptake and excretion of contrast from the kidneys. No dilated small bowel, free fluid, or free air. There is new hyperdense debris throughout mid and lo wer small bowel loops. Again, the lack of intra-abdominal fat significantly limits the evaluation. Sc attered mild stool throughout. Bladder partially distended. Uterus anteverted. Ovaries not clearly delineated from extensive crowdin g of structures. Mild pelvic floor relaxation. Mild generalized anasarca change. Bones: Sacral Tarlov cyst measuring up to 1.9 cm. Degenerated dextro convex scoliosis mid lumbar spine. There is severe degenerative disc disease here. IMPRESSION: 1. VERY LIMITED ASSESSMENT DUE TO THE PAUCITY OF INTRA-ABDOMINAL FAT AND MILD THIRD SPACING WHICH KYLEIGH ES DELINEATION BETWEEN SOFT TISSUE STRUCTURES DIFFICULT. 2. Right-sided pelviectasis show some improvement and now has the appearance of an extrarenal pelvis. No manfred hydronephrosis. However, the right ureter remains nonvisualized even on the 10 minute delay ed scan. 3. Patchy hypoenhancement of the right kidney. Correlate to exclude underlying infection. 4. COPD with new airspace disease at the left base. Correlate for pneumonia. 5. Similar dilatation of the bile duct up to 9 mm and the main pancreatic duct up to 5 mm. This may b e chronic for the patient. Correlate with alkaline phosphatase and bilirubin levels. 6. New hyperdense debris throughout mid and lower small bowel loops. Correlate for any recent ingesti on that could explain this such as multivitamins, iron pills, Pepto-Bismol, antacids, or other heavy metals. [facility], , 07/21/2024 11:04 AM
== END | disposition home or self-care (01) ==
LOC: RADCTMAIN 08:57
PROVIDERS: ATTEND Urology
DX: N13.39 Other hydronephrosis
CPT/HCPCS: 36415; 74178; 74400; 80048

== ENCOUNTER 2024-08-25 07:37 | Inpatient (IN) | payer OTHER ==
--- NOTE | 2024-08-25 08:06 | ED ---
General Adult HPI - General Chief complaint: Shortness of Breath Stated complaint: JESSE Time Seen by Provider: 08/25/24 07:40 Source: patient, EMS Mode of arrival: EMS Limitations: no limitations - History of Present Illness Initial comments: Dictation was produced using GPX Software dictation software. please excuse any grammatical, word or spelling errors. Chief Complaint: 64-year-old female presents to the emergency department with shortness of breath History of Present Illness: Patient 64-year-old female she has past medical history of COPD, lupus hypertension presents to the ER for 2 to 3 days of shortness of breath. Arrives via EMS. called EMS patient does have a productive cough she states that her sputum is white or clear. She has a history of COPD. Denies any chest pain. She does have exacerbation of her chronic lower back pain. Denies any fever, chills or night sweats. No obvious sick contacts. She does have rhinorrhea. The ROS documented in this emergency department record has been reviewed and confirmed by me. Those systems with pertinent positive or negative responses have been documented in the HPI. All other systems are other negative and/or noncontributory. - Related Data Home Medications Medication Instructions Recorded Confirmed Hydroxychloroquine Sulfate 200 mg PO DAILY 03/02/14 04/23/24 [Plaquenil] Folic Acid 1 mg PO DAILY 08/05/20 04/23/24 atenoloL 12.5 mg PO DAILY 08/05/20 04/23/24 FLUoxetine HCL [PROzac] 20 mg PO DAILY 04/10/22 04/23/24 amLODIPine [Norvasc] 5 mg PO DAILY 04/10/22 04/23/24 ALPRAZolam [Xanax] 0.25 mg PO DAILY PRN 04/23/24 04/23/24 Cyclobenzaprine [Flexeril] 10 mg PO DAILY PRN 04/23/24 04/23/24 HYDROcodone/APAP 5-325MG [[place] 1 tab PO TID PRN 04/23/24 04/23/24 5-325] Levothyroxine Sodium [Synthroid] 100 mcg PO DAILY 04/23/24 04/23/24 Losartan [Cozaar] 50 mg PO DAILY 04/23/24 04/23/24 Rosuvastatin Calcium [Crestor] 5 mg PO DAILY 04/23/24 04/23/24 Allergies Allergy/AdvReac Type Severity Reaction Status Date / Time nitrofurantoin AdvReac Nausea & Verified 08/25/24 07:47 [From Macrobid] Vomiting & Diarrhea Review of Systems ROS Statement: Those systems with pertinent positive or pertinent negative responses have been documented in the HPI. ROS Other: All systems not noted in ROS Statement are negative. Past Medical History Past Medical History: COPD, Hypertension, Thyroid Disorder Additional Past Medical History / Comment(s): hx lupus, frequent diarrhea & gas, minor aortic stenosis-follows w/[facility], frequent UTI's History of Any Multi-Drug Resistant Organisms: None Reported Past Surgical History: Breast Surgery, Tonsillectomy Additional Past Surgical History / Comment(s): EGD's, part of stomach removed related to ulcers, left lung surg-removed small part related to bleb,. COLONOSCOPY. RT CAROTID ENDARTERECTOMY,. BREAST AUGMENTATION X 4 Past Anesthesia/Blood Transfusion Reactions: Previous Problems w/ Anesthesia Additional Past Anesthesia/Blood Transfusion Reaction / Comment(s): some kind of problem after stomach surgery, "got too much", & aggravated lupus which affected lungs Past Psychological History: No Psychological Hx Reported Smoking Status: Current every day smoker Past Alcohol Use History: None Reported Past Drug Use History: None Reported - Past Family History Father Family Medical History: Cancer General Exam - General Exam Comments Initial Comments: PHYSICAL EXAM: General Impression: Alert and oriented x3, dyspneic HEENT: Normocephalic atraumatic, extra-ocular movements intact, pupils equal and reactive to light bilaterally, mucous membranes moist. Cardiovascular: Heart regular rate and rhythm Chest: Able to complete full sentences, no retractions, no tachypnea, poor air exchange Abdomen: abdomen soft, non-tender, non-distended, no organomegaly Musculoskeletal: Pulses present and equal in all extremities, no peripheral edema Motor: no focal deficits noted Neurological: CN II-XII grossly intact, no focal motor or sensory deficits noted Skin: Intact with no visualized rashes Psych: Normal affect and mood Limitations: no limitations Course Vital Signs 08/25/24 08/25/24 08/25/24 07:40 07:46 08:00 Temperature 98 F Pulse Rate 56 L 60 Respiratory 24 24 20 Rate Blood Pressure 156/56 156/56 O2 Sat by Pulse 89 L 98 Oximetry 08/25/24 08/25/2408/25/24 09:00 09:11 09:22 Temperature Pulse Rate 62 63 65 Respiratory 21 Rate Blood Pressure 146/59 O2 Sat by Pulse 92 L Oximetry - Reevaluation(s) Reevaluation #1: 08/25/24 09:31 Case discussed in detail with Dr. Tena of cardiology. He was notified of patient's initial presenting symptoms along with Trope elevation. Reports that there is nothing urgent that cardiology needs to do. States that we should defer to medicine for further recommendations. EKG Findings - EKG Comments: EKG Findings:: My EKG interpretation: Ventricular rate 65, sinus rhythm,. 140, QRS 113, QTc 442. No IN prolongation, no QTC prolongation, no ST or T-wave changes noted. EKG compared to April 23, 2024 showing no changes. Overall, this EKG is unremarkable Medical Decision Making - Medical Decision Making Was pt. sent in by a medical professional or institution (, PA, [employer], urgent care, hospital, or penitentiary...) When possible be specific @ -No Did you speak to anyone other than the patient for history (EMS, parent, family, police, friend...)? What history was obtained from this source @ -EMS as described above Did you review nursing and triage notes (agree or disagree)? Why? @ -I reviewed and agree with nursing and triage notes Were old charts reviewed (outside hosp., previous admission, EMS record, old EKG, old radiological studies, urgent care reports/EKG's, penitentiary records)? Report findings @ -No old charts were reviewed Differential Diagnosis (chest pain, altered mental status, abdominal pain women, abdominal pain men, vaginal bleeding, musculoskeletal, weakness, fever, dyspnea, syncope, headache, dizziness, GI bleed, back pain, seizure, CVA, palpatations, mental health)? @ -Differential Dyspnea: Coronary syndrome, arrhythmia, tamponade, asthma, COPD, pulmonary embolism, pneumonia, pneumothorax, pulmonary effusion, anaphylaxis, diabetic ketoacidosis, flailed chest, pulmonary contusion, diaphragmatic rupture, anemia, neuromuscular, this is not meant to be an all-inclusive list. EKG interpreted by me (3pts min.). @ -See above X-rays interpreted by me (1pt min.). @ -Chest x-ray shows slight right-sided opacity CT interpreted by me (1pt min.). @ -None done U/S interpreted by me (1pt. min.). @ -None done What testing was considered but not performed or refused? (CT, X-rays, U/S, labs)? Why? @ -None What meds were considered but not given or refused? Why? @ -None Was smoking cessation discussed for >3mins.? @ -No Were there social determinants of health that impacted care today? How? (Homelessness, low income, unemployed, alcoholism, drug addiction, transportation, low edu. Level, literacy, decrease access to med. care, [facility], rehab)? @ -No Was there de-escalation of care discussed even if they declined (Discuss DNR or withdrawal of care, Hospice)? DNR status @ -No What co-morbidities impacted this encounter? (DM, HTN, Smoking, COPD, CAD, Cancer, CVA, ARF, Chemo, Hep., AIDS, mental health diagnosis, sleep apnea, morbid obesity)? @ -History of COPD and tobacco use Was patient admitted / discharged? Hospital course, mention meds given and route, prescriptions, significant lab abnormalities, going to OR and other pertinent info. @ -64-year-old female presents emergency department chief complaint of dyspnea. Vital signs upon arrival shows 99% on room air. She is satting well with 2 L nasal cannula. Patient has reported pulmonary infectious symptoms. Laboratory evaluation shows leukocytosis 12.9. Coag panel is negative. Metabolic panel shows patient 7.1 bicarb of 13. Lactic acidosis 8.0. Troponin 2.280 with a BNP of 12,100. Aside from shortness of breath patient does not have any symptoms of ACS. No chest pain no shoulder or jaw pain. No nausea or diaphoresis. Case was discussed with Dr. Tena of cardiology who is aware of patient's troponin elevation. States that he has no recommendations at this time and that patient's troponin is too low for cardiology to be significantly involved at this time. Viral testing is negative. X-ray suggests possible pulmonary infectious findings. Patient given antibiotics. Given Lasix. At this point differential diagnosis is new onset cardiomyopathy versus pneumonia. Case discussed with hospitalist for admission Did you discuss the management of the patient with other professionals (professionals i.e. , PA, [employer], lab, RT, psych nurse, web content & social media manager, general warehouse worker, teacher, sba business development officer, showcase maker)? Give summary @ -See above Was critical care preformed (if so, how long)? @ -Yes, 33 minutes for hypoxic respiratory failure and metabolic derangement Undiagnosed new problem with uncertain prognosis? @ -No Drug Therapy requiring intensive monitoring for toxicity (Heparin, Nitro, Insulin, Cardizem)? @ -No Were any procedures done? @ -No Diagnosis/symptom? Acute, or Chronic, or Acute on Chronic? Uncomplicated (without systemic symptoms) or Complicated (systemic symptoms)? @ -Cardiomyopathy versus pneumonia complicated by hypoxia Side effects of treatment? @ -No Exacerbation, Progression, or Severe Exacerbation? @ -No Poses a threat to life or bodily function? How? (Chest pain, [place], GA, pneumonia, PE, COPD, DKA, ARF, appy, cholecystitis, CVA, Diverticulitis, Homicidal, Suicidal, threat to staff... and all critical care pts) @ -yes - Lab Data Result diagrams: 08/25/24 08:06 08/25/24 08:06 Lab Results 08/25/24 08/25/24 08/25/24 Range/Units 08:06 08:06 08:06 WBC 12.9 H (3.8-10.6) k/uL RBC 4.19 (3.80-5.40) m/uL Hgb 13.6 (11.4-16.0) gm/dL Hct 45.7 (34.0-46.0) % MCV 109.0 H (80.0-100.0) fL MCH 32.4 (25.0-35.0) pg MCHC 29.8 L (31.0-37.0) g/dL RDW 13.0 (11.5-15.5) % Plt Count 207 (150-450) k/uL MPV 8.2 Neutrophils % 79 % Lymphocytes % 13 % Monocytes % 6 % Eosinophils % 0 % Basophils % 0 % Neutrophils # 10.2 H (1.3-7.7) k/uL Lymphocytes # 1.7 (1.0-4.8) k/uL Monocytes # 0.7 (0-1.0) k/uL Eosinophils # 0.1 (0-0.7) k/uL Basophils # 0.1 (0-0.2) k/uL Manual Slide Review Performed Hypochromasia Marked Macrocytosis Marked A PT 11.2 (10.0-12.5) sec INR 1.0 (<1.2) APTT 24.8 (22.0-30.0) sec VBG pH (7.31-7.41) VBG pCO2 (37-51) mmHg VBG HCO3 (24-28) mmol/L Sodium 136 L (137-145) mmol/L Potassium 5.4 H (3.5-5.1) mmol/L Chloride 108 H (98-107) mmol/L Carbon Dioxide 13 L (22-30) mmol/L Anion Gap 15 mmol/L BUN 18 H (7-17) mg/dL Creatinine 1.20 H (0.52-1.04) mg/dL Est GFR (CKD-EPI)AfAm 55 (>60 ml/min/1.73 sqM) Est GFR (CKD-EPI)NonAf 48 (>60 ml/min/1.73 sqM) Glucose 147 H (74-99) mg/dL Plasma Lactic Acid Som (0.7-2.0) mmol/L Calcium 8.7 (8.4-10.2) mg/dL Magnesium 2.4 H (1.6-2.3) mg/dL Total Bilirubin 1.2 (0.2-1.3) mg/dL AST 111 H (14-36) U/L ALT 35 H (4-34) U/L Alkaline Phosphatase 88 (38-126) U/L Troponin I (0.000-0.034) ng/mL NT-Pro-B Natriuret Pep 45307 pg/mL Total Protein 6.8 (6.3-8.2) g/dL Albumin 4.2 (3.5-5.0) g/dL Influenza Type A (PCR) (Not Detectd) Influenza Type B (PCR) (Not Detectd) RSV (PCR) (Not Detectd) SARS-CoV-2 (PCR) (Not Detectd) 08/25/24 08/25/24 08/25/24 Range/Units 08:06 08:06 08:06 WBC (3.8-10.6) k/uL RBC (3.80-5.40) m/uL Hgb (11.4-16.0) gm/dL Hct (34.0-46.0) % MCV (80.0-100.0) fL MCH (25.0-35.0) pg MCHC (31.0-37.0) g/dL RDW (11.5-15.5) % Plt Count (150-450) k/uL MPV Neutrophils % % Lymphocytes % % Monocytes % % Eosinophils % % Basophils % % Neutrophils # (1.3-7.7) k/uL Lymphocytes # (1.0-4.8) k/uL Monocytes # (0-1.0) k/uL Eosinophils # (0-0.7) k/uL Basophils # (0-0.2) k/uL Manual Slide Review Hypochromasia Macrocytosis PT (10.0-12.5) sec INR (<1.2) APTT (22.0-30.0) sec VBG pH (7.31-7.41) VBG pCO2 (37-51) mmHg VBG HCO3 (24-28) mmol/L Sodium (137-145) mmol/L Potassium (3.5-5.1) mmol/L Chloride (98-107) mmol/L Carbon Dioxide (22-30) mmol/L Anion Gap mmol/L BUN (7-17) mg/dL Creatinine (0.52-1.04) mg/dL Est GFR (CKD-EPI)AfAm (>60 ml/min/1.73 sqM) Est GFR (CKD-EPI)NonAf (>60 ml/min/1.73 sqM) Glucose (74-99) mg/dL Plasma Lactic Acid Som 8.0 H* (0.7-2.0) mmol/L Calcium (8.4-10.2) mg/dL Magnesium (1.6-2.3) mg/dL Total Bilirubin (0.2-1.3) mg/dL AST (14-36) U/L ALT (4-34) U/L Alkaline Phosphatase (38-126) U/L Troponin I 2.280 H* (0.000-0.034) ng/mL NT-Pro-B Natriuret Pep pg/mL Total Protein (6.3-8.2) g/dL Albumin (3.5-5.0) g/dL Influenza Type A (PCR) Not Detected (Not Detectd) Influenza Type B (PCR) Not Detected (Not Detectd) RSV (PCR) Not Detected (Not Detectd) SARS-CoV-2 (PCR) Not Detected (Not Detectd) 08/25/24 Range/Units 08:06 WBC (3.8-10.6) k/uL RBC (3.80-5.40) m/uL Hgb (11.4-16.0) gm/dL Hct (34.0-46.0) % MCV (80.0-100.0) fL MCH (25.0-35.0) pg MCHC (31.0-37.0) g/dL RDW (11.5-15.5) % Plt Count (150-450) k/uL MPV Neutrophils % % Lymphocytes % % Monocytes % % Eosinophils % % Basophils % % Neutrophils # (1.3-7.7) k/uL Lymphocytes # (1.0-4.8) k/uL Monocytes # (0-1.0) k/uL Eosinophils # (0-0.7) k/uL Basophils # (0-0.2) k/uL Manual Slide Review Hypochromasia Macrocytosis PT (10.0-12.5) sec INR (<1.2) APTT (22.0-30.0) sec VBG pH 7.12 L* (7.31-7.41) VBG pCO2 41 (37-51) mmHg VBG HCO3 13 L (24-28) mmol/L Sodium (137-145) mmol/L Potassium (3.5-5.1) mmol/L Chloride (98-107) mmol/L Carbon Dioxide (22-30) mmol/L Anion Gap mmol/L BUN (7-17) mg/dL Creatinine (0.52-1.04) mg/dL Est GFR (CKD-EPI)AfAm (>60 ml/min/1.73 sqM) Est GFR (CKD-EPI)NonAf (>60 ml/min/1.73 sqM) Glucose (74-99) mg/dL Plasma Lactic Acid Som (0.7-2.0) mmol/L Calcium (8.4-10.2) mg/dL Magnesium (1.6-2.3) mg/dL Total Bilirubin (0.2-1.3) mg/dL AST (14-36) U/L ALT (4-34) U/L Alkaline Phosphatase (38-126) U/L Troponin I (0.000-0.034) ng/mL NT-Pro-B Natriuret Pep pg/mL Total Protein (6.3-8.2) g/dL Albumin (3.5-5.0) g/dL Influenza Type A (PCR) (Not Detectd) Influenza Type B (PCR) (Not Detectd) RSV (PCR) (Not Detectd) SARS-CoV-2 (PCR) (Not Detectd) Disposition Clinical Impression: Cardiomyopathy Disposition: ADMITTED IP TO THIS HOSP Condition: Fair Referrals: Dwayne Delvalle DO [Primary Care Provider] - 1-2 days Decision Time: 09:41
[2024-08-25] MEDS: SODIUM CHLORIDE 0.9% 500 ML 500 ML IV STA (08:16)
[2024-08-25] MEDS: DEXAMETHASONE SOD PHOSPHATE 10 MG/ML 1 ML VIAL IV STA (08:18)
[2024-08-25 08:19] LABS: Basophils # (A) 0.1 k/uL (0-0.2); Basophils % (A) 0 %; Eosinophils # (A) 0.1 k/uL (0-0.7); Eosinophils % (A) 0 %; HCT 45.7 % (34.0-46.0); HGB 13.6 gm/dL (11.4-16.0); Hypochromasia Marked; Lymphocytes # (A) 1.7 k/uL (1.0-4.8); Lymphocytes % (A) 13 %; MCH 32.4 pg (25.0-35.0); MCHC 29.8 g/dL (31.0-37.0); Macrocytosis Marked; Mean Platelet Volume 8.2; Monocytes # (A) 0.7 k/uL (0-1.0); Monocytes % (A) 6 %; Neutrophils # (A) 10.2 k/uL (1.3-7.7); Neutrophils % (A) 79 %; Platelet Count 207 k/uL (150-450); RBC 4.19 m/uL (3.80-5.40); WBC 12.9 k/uL (3.8-10.6)
[2024-08-25 08:28] LABS: Partial Thromboplastin Time 24.8 sec (22.0-30.0); Prothrombin Time 11.2 sec (10.0-12.5)
[2024-08-25 08:31] LABS: VBG PH 7.12 (7.31-7.41)
[2024-08-25 08:33] LABS: ALT 35 U/L (4-34); AST 111 U/L (14-36); African American GFR (CKD) 55 (>60 ml/min/1.73 sqM); Albumin 4.2 g/dL (3.5-5.0); Alkaline Phosphatase 88 U/L (38-126); Anion Gap 15 mmol/L; Blood Urea Nitrogen 18 mg/dL (7-17); Calcium 8.7 mg/dL (8.4-10.2); Carbon Dioxide 13 mmol/L (22-30); Chloride 108 mmol/L (98-107); Glucose 147 mg/dL (74-99); Magnesium 2.4 mg/dL (1.6-2.3); Non-African American GFR(CKD) 48 (>60 ml/min/1.73 sqM); Potassium 5.4 mmol/L (3.5-5.1); Sodium 136 mmol/L (137-145); Total Bilirubin 1.2 mg/dL (0.2-1.3); Total Protein 6.8 g/dL (6.3-8.2)
[2024-08-25 08:41] LABS: NT-Pro-B-Type Natriuretic Pept 12100 pg/mL
--- NOTE | 2024-08-25 08:57 | XR ---
EXAMINATION TYPE: XR chest 2V DATE OF EXAM: 08/25/2024 8:33 AM CLINICAL INDICATION: Female, 64 years old with history of dyspnea; COMPARISON: Chest radiographs from 08/25/2024 TECHNIQUE: XR chest 2V Frontal view of the chest. FINDINGS: Lungs/Pleura: Subtle airspace opacities superimposed on reticular opacities. There is flattening of t he diaphragm with increased lucency in the lung apices. There is no evidence of pleural effusion, foc al consolidation, or pneumothorax. Pulmonary vascularity: Unremarkable. Heart/mediastinum: Cardiomediastinal silhouette is unremarkable. Musculoskeletal: No acute osseous pathology. IMPRESSION: Airspace opacities superimposed on COPD. Correlate for pneumonia [facility], , 08/25/2024 8:55 AM
[2024-08-25] MEDS: IPRATROPIUM-ALBUTEROL 3 ML NEB INHALATION STA (09:11)
[2024-08-25] MEDS ORDERED: HEPARIN SODIUM 1,000 UN/ML (10ML VL) IV PRN (09:19)
[2024-08-25] MEDS ORDERED: ACETAMINOPHEN TAB 325 MG TAB PO PRN (09:34)
[2024-08-25] MEDS ORDERED: NALOXONE 0.4 MG/ML 1 ML VIAL IV PRN (09:34)
[2024-08-25] MEDS: ASPIRIN 81 MG PO STA (10:15)
[2024-08-25] MEDS: cefTRIAXone IN SWFI 1,000 MG/10 ML SYRINGE IVP STA (10:17)
[2024-08-25] MEDS: FUROSEMIDE 10 MG/ML 4 ML VIAL IV STA (10:20)
[2024-08-25] MEDS: SODIUM CHLORIDE 0.9% 1,000 ML IV SCH (10:23)
[2024-08-25] MEDS: AZITHROMYCIN 500 MG in SODIUM CHLORIDE 0.9% 250 ML IVPB STA (10:24)
[2024-08-25] MEDS: HEPARIN SODIUM 1,000 UN/ML (10ML VL) IV ONE (10:38)
[2024-08-25] MEDS: HEPARIN SOD,PORK IN 0.45% NACL 25,000 UNIT in 0.45% NACL 1 250ML.BAG IV SCH (10:38)
--- NOTE | 2024-08-25 14:48 | P.CRDCN ---
History of Present Illness Consult date: 08/25/24 Reason for Consult (text): Elevated troponins History of present illness: This is a 64-year-old female patient of Dr. BENJI Overton with past medical history of moderate aortic stenosis, right carotid endarterectomy, hypertension, COPD, tobacco use and dependence. We have been asked to evaluate the patient for elevated troponins. Patient states that she came into the hospital due to shortness of breath that started yesterday and may have been going on for couple of days felt worse. Also had a fever. According to the patient's family she h ad been going on with shortness of breath for at least 2 weeks along with chest pain that started at 3 in the morning. She has had a cough with clear sputum. She has been started on a heparin drip. She denies any dizziness or lightheadedness. Blood pressure 113/58, heart rate 54, pulse ox 100% on 5 L nasal cannula. EKG: ST depression in the inferior leads and lateral precordial leads Chest x-ray: Airspace opacities superimposed on COPD correlate for pneumonia. Laboratory studies: WBC 12.9, hemoglobin 13.6. Sodium 136, potassium 5.4, chloride 108, CO2 13, BUN 18, creatinine 1.2. Lactic acid 10. Troponin 2.28, 48.8, 154. Magnesium 2.4. AST 111, ALT 35. proBNP 12,100. Influenza A, i nfluenza B, RSV, COVID-19 not detected. Home cardiac medications: Amlodipine 5 mg daily, atenolol 12.5 mg daily, losartan 50 mg daily, rosuvastatin 5 mg daily, patient is also on levothyroxine 100 mcg daily. Echocardiogram performed 09/24/2023 revealed EF of 55%, mild to moderate , moderate to severe AR, mild MR, mild to moderate TR, RVSP 35. Lexiscan Cardiolite stress test performed 01/15/2020 revealed EF 60%, no ischemia. Review Of Systems: At the time of my exam: CONSTITUTIONAL: Denies fever or chills. HEENT: Denies blurred vision, vision changes, or eye pain. Denies hemoptysis CARDIOVASCULAR: Denies chest pain. Denies orthopnea. Denies PND. Denies palpitations RESPIRATORY: Reports shortness of breath. GASTROINTESTINAL: Denies abdominal pain. Denies nausea or vomiting. HEMATOLOGIC: Denies bleeding disorders. GENITOURINARY: Denies any blood in urine. SKIN: Denies puritis. Denies rash. Physical examination: Gen: This is a 64-year-old female in no acute distress VS: reviewed HEENT: Head is atraumatic, normocephalic. Pupils equal, round. Sclerae is anicteric. NECK: Supple. No JVD. LUNGS: Clear to auscultation. No wheezes or rhonchi. No intercostal retractions. HEART: Regular rate and rhythm. 2/6 systolic murmur right sternal border. ABDOMEN: Soft No tenderness. EXTREMITIES: No pedal edema. No calf tenderness. NEUROLOGICAL: Patient is awake, alert and oriented x3. Assessment: Non-ST elevated AR Lactic acidosis Acute hypoxic and hypercapnic respiratory failure COPD exacerbation Moderate to severe AR hypertension Tobacco use and dependence Plan: Resume patient's home cardiac medications with the following changes Increase atorvastatin to 20 mg Continue heparin drip Obtain 2-D echocardiogram and Doppler study to assess cardiac structure and function Smoking cessation, patient will be provided the [facility] Therapy quit line information at discharge Further recommendations to follow based upon clinical course Thank you kindly for this consultation. Nurse practitioner note has been reviewed, I agree with documented findings and plan of care. Patient was seen and examined. Past Medical History Past Medical History: COPD, Hypertension, Thyroid Disorder Additional Past Medical History / Comment(s): hx lupus, frequent diarrhea & gas, minor aortic stenosis-follows w/[facility], frequent UTI's History of Any Multi-Drug Resistant Organisms: None Reported Past Surgical History: Breast Surgery, Tonsillectomy Additional Past Surgical History / Comment(s): EGD's, part of stomach removed related to ulcers, left lung surg-removed small part related to bleb,. COLONOSCOPY. RT CAROTID ENDARTERECTOMY,. BREAST AUGMENTATION X 4 Past Anesthesia/Blood Transfusion Reactions: Previous Problems w/ Anesthesia Additional Past Anesthesia/Blood Transfusion Reaction / Comment(s): some kind of problem after stomach surgery, "got too much", & aggravated lupus which affected lungs Past Psychological History: No Psychological Hx Reported Smoking Status: Current every day smoker Past Alcohol Use History: None Reported Past Drug Use History: None Reported - Past Family History Father Family Medical History: Cancer Medications and Allergies Home Medications Medication Instructions Recorded Confirmed Type Hydroxychloroquine Sulfate 200 mg PO DAILY 03/02/14 08/25/24 History [Plaquenil] Folic Acid 1 mg PO DAILY 08/05/20 08/25/24 History atenoloL 12.5 mg PO DAILY 08/05/20 08/25/24 History FLUoxetine HCL [PROzac] 20 mg PO DAILY 04/10/22 08/25/24 History amLODIPine [Norvasc] 5 mg PO DAILY 04/10/22 08/25/24 History ALPRAZolam [Xanax] 0.25 mg PO DAILY PRN 04/23/24 08/25/24 History Cyclobenzaprine [Flexeril] 10 mg PO DAILY PRN 04/23/24 08/25/24 History HYDROcodone/APAP 5-325MG [[place] 1 tab PO TID PRN 04/23/24 08/25/24 History 5-325] Levothyroxine Sodium [Synthroid] 100 mcg PO DAILY 04/23/24 08/25/24 History Losartan [Cozaar] 50 mg PO DAILY 04/23/24 08/25/24 History Rosuvastatin Calcium [Crestor] 5 mg PO DAILY 04/23/24 08/25/24 History Albuterol Nebulized [Ventolin 2.5 mg INHALATION RT-QID PRN 08/25/24 08/25/24 History Nebulized] Albuterol Sulfate [Ventolin HFA] 2 puff INHALATION RT-QID PRN 08/25/24 08/25/24 History oxyBUTYnin chloride [Ditropan] 5 mg PO DIRECTED 08/25/24 08/25/24 History Allergies Allergy/AdvReac Type Severity Reaction Status Date / Time nitrofurantoin AdvReac Nausea & Verified 08/25/24 09:46 [From Macrobid] Vomiting & Diarrhea Physical Exam Vitals: Vital Signs Temp Pulse Resp BP Pulse Ox 08/25/24 14:16 54 L 21 113/58 100 08/25/24 12:00 56 L 20 104/42 98 08/25/24 10:22 64 18 154/55 99 08/25/24 10:21 67 08/25/24 10:14 63 18 154/55 98 08/25/24 09:22 65 08/25/24 09:11 63 08/25/24 09:00 62 21 146/59 92 L 10/21/24 08:00 60 20 156/56 98 08/25/24 07:46 24 08/25/24 07:40 98 F 56 L 24 156/56 89 L Intake and Output 08/24/24 08/25/24 08/25/24 22:59 06:59 14:59 Other: Weight 34.473 kg Results 08/25/24 08:06 08/25/24 19:20 Cardiac Enzymes 08/25/24 08/25/24 08/25/24 Range/Units 08:06 08:06 12:58 AST 111 H (14-36) U/L Troponin I 2.280 H* 48.800 H* (0.000-0.034) ng/mL Coagulation 08/25/24 Range/Units 08:06 PT 11.2 (10.0-12.5) sec APTT 24.8 (22.0-30.0) sec CBC 08/25/24 Range/Units 08:06 WBC 12.9 H (3.8-10.6) k/uL RBC 4.19 (3.80-5.40) m/uL Hgb 13.6 (11.4-16.0) gm/dL Hct 45.7 (34.0-46.0) % Plt Count 207 (150-450) k/uL Comprehensive Metabolic Panel 08/25/24 Range/Units 08:06 Sodium 136 L (137-145) mmol/L Potassium 5.4 H (3.5-5.1) mmol/L Chloride 108 H (98-107) mmol/L Carbon Dioxide 13 L (22-30) mmol/L BUN 18 H (7-17) mg/dL Creatinine 1.20 H (0.52-1.04) mg/dL Glucose 147 H (74-99) mg/dL Calcium 8.7 (8.4-10.2) mg/dL AST 111 H (14-36) U/L ALT 35 H (4-34) U/L Alkaline Phosphatase 88 (38-126) U/L Total Protein 6.8 (6.3-8.2) g/dL Albumin 4.2 (3.5-5.0) g/dL Current Medications Generic Name Dose Route Start Last Admin Trade Name Freq PRN Reason Stop Dose Admin Acetaminophen 650 mg 08/25/24 09:34 Acetaminophen Tab 325 Mg Tab PO Q6HR PRN Mild Pain or Fever > 100.5 Albuterol/Ipratropium 3 ml 08/25/24 16:00 Ipratropium-Albuterol 3 Ml Neb INHALATION RT-Q4H KALEIGH Atorvastatin Calcium 10 mg 08/25/24 13:45 Atorvastatin 10 Mg Tab PO DAILY KALEIGH Heparin Sodium (Porcine) 0 unit 08/25/24 09:19 Heparin Sodium 1,000 Un/Ml (10ml Vl) IV PER PROTOCOL PRN Low PTT Protocol Heparin Sodium/Sodium Chloride 250 mls @ 4.137 mls/hr 08/25/24 09:30 08/25/24 10:38 25,000 unit/ Sodium Chloride IV 12 units/kg/hr .Q24H KALEIGH 4.137 mls/hr Administration Protocol 12 UNITS/KG/HR Sodium Chloride 1,000 mls @ 20 mls/hr 08/25/24 09:45 08/25/24 10:23 Saline 0.9% IV 20 mls/hr .Q24H KALEIGH Administration Naloxone HCl 0.2 mg 08/25/24 09:34 Naloxone 0.4 Mg/Ml 1 Ml Vial IV Q2M PRN Opioid Reversal Intake and Output 08/24/24 08/25/24 08/25/24 22:59 06:59 14:59 Other: Weight 34.473 kg Patient Weight 08/26/24 06:59 Weight 34.473 kg 08/25/24 08:06 08/25/24 08:06
[2024-08-25] MEDS: ATORVASTATIN 10 MG TAB PO SCH (15:00)
--- NOTE | 2024-08-25 18:11 | P.HPIM ---
History of Present Illness H&P Date: 08/25/24 Chief Complaint: Dyspnea Patient is a 64-year-old female with PMH of COPD (not on continuous home oxygen), hypertension, hyperlipidemia presents to the ER via EMS for worsening dyspnea. Patient has been complaining of shortness of breath since 2 to 3 days. Patient reports that she started feel worsening sharp red last night. It is associated with productive cough with clear sputum and mild nausea. No exacerbating alleviating factors. Patient denies chest pain, abdominal discomfort, swelling of legs, fever, chills, numbness or tingling in upper and lower extremities. Patient denies COPD exacerbation requiring hospitalization within last 1 year. Patient has a history of mild to moderate aortic stenosis and follows up with Dr. Overton outpatient. Patient last saw him 2 months ago. Denies history of CAD and/or CVA. Denies any history of recent hospitalization, travel, sick contact. Patient denies any history of A-fib and/or on anticoagulation. EKG in the ER shows normal sinus rhythm with possible left atrial enlargement. Nonspecific ST and T wave changes noted. QTc borderline prolonged at 442 ms. Poor R wave progression. Chest x-ray done in the ER shows diffuse reticulonodular opacities. Laboratory evaluation shows WBC 12.9, hemoglobin 13.6, MCV 109.0, platelet count 207 Blood gas VBG pH shows 7.12, pCO2 41, bicarb 13, Sodium 136, potassium 5.4, chloride 108, bicarb 13, BUN 18, creatinine 1.2, EGFR 55, glucose 147, Lactic acid 8.0 --->10.1 Magnesium 2.4, total bili 1.2, AST 111, ALT 35 Troponin I 2.280, BNP [id number] Review of systems: Pertinent positives and negatives as discussed in HPI, a complete review of systems was performed and all other systems are negative. Social history: Tobacco: 1 pack/day x 30 years Alcohol: Social Recreational drugs: None Travel: None Family History: CAD in mother Physical examination: Vital signs reviewed General: non toxic, no distress, appears older than stated age, underweight Derm: no unusual rashes/lesions, warm Head: atraumatic, normocephalic, symmetric Eyes: EOMI, no lid lag, anicteric sclera, pupils equal round reactive to light Mouth: no lip lesion, mucus membranes moist Cardiovascular: S1S2 reg, 2/6 systolic murmur, positive dorsalis pedis pulse bilateral, no edema Lungs: Decreased breath sounds bilaterally. Mild bilateral crackles heard at the bases. No accessory muscle use. On 5 L oxygen via nasal cannula Abdominal: soft, nontender to palpation, no guarding Ext: muscle strength 5 out of 5 in all 4 extremities grossly, no gross muscle atrophy, no contractures, Neuro: CN II-XI grossly intact, no gross focal neuro deficits Psych: Alert, oriented, appropriate affect Assessment/Plan: 64-year-old female with PMH of COPD (not on continuous home oxygen), hypertension, hyperlipidemia presents to the ER via EMS for worsening dyspnea. #Acute hypoxemic respiratory failure in the setting of COPD exacerbation vs Acute Heart Failure Exacerbation Continue with the oxygen therapy; patient currently on 5 L via nasal cannula DuoNebs scheduled and [id number] Patient is status post Zithromax 500 mg IVPB once and Rocephin 1 g IVP once stat for prophylactic dose for pneumonia Status post 500 cc of normal saline Pneumonia less likely will hold off antibiotics considering that sepsis criteria is 1 out of 4 and vital signs are stable Order sputum culture and sensitivity Status post Lasix 40 mg IV once; will reassess dosing in p.m. #Congestive heart failure secondary to mitral regurgitation #Elevated troponin #Acute kidney injury secondary to prerenal azotemia in the setting of CHF with hyperkalemia #Anion gap metabolic acidosis secondary lactic acidosis secondary to above Order stat echocardiogram Troponin I 2.280; continue to trend troponin Lipid panel within normal limits done on 12/26/2023 with LDL 61.2 Aspirin daily, statin as below Deferring beta-girma due to bradycardia Deferring losartan due to hyperkalemia and DAVON Resume statin Increase dose from 20mg daily to 40mg Continue with IV low-dose heparin Consult with cardiology Continue with heart healthy diet --> NPO @ [place] tonight in case of LHC tomorrow Strict I's and O's Daily weights Lactic acid trending upward from 8.0 --> 10.1; continue monitor lactic acid #Leukocytosis likely reactive WBC 12.9 Continue monitor CBC Repeat CBC in the morning #Transaminitis AST 111, ALT 35 Monitor CMP Avoid hepatotoxic medications #Cachexia, BMI 13.9 #Severe Protein Calorie Malnutrition - dietitian consult - consideration of nutritional assessment labs: iron panel, b12, folate, vitamin D, pre-albumin level, etc DVT prophylaxis: IV low-dose heparin The patient is admitted with an anticipated more than 2 midnight stay for evaluation of acute hypoxemic respiratory failure CODE STATUS: DNR/DNI Discussed with: Patient Anticipated discharge place: Pending clinical course I saw and evaluated the patient during the egan and critical portions of this encounter, and discussed the case in detail with the resident author of this note, I agree with the Assessment and Plan, and my changes, if any, are highlighted in blue. Additional addendum: 64-year-old woman with progressive shortness of breath over the last week. Noted significant findings are of significant systolic and diastolic murmur on auscultation, significantly increasing troponin from 2 to 48, chest x-ray with findings of vascular congestion and increasing pleural effusions on repeat chest x-ray, personally interpreted. I called veterinary surgery technologist to do a stat echo, read is pending at this time. Further management is pending specialist consideration. Past Medical History Past Medical History: COPD, Hypertension, Thyroid Disorder Additional Past Medical History / Comment(s): hx lupus, frequent diarrhea & gas, minor aortic stenosis-follows w/Overton, frequent UTI's History of Any Multi-Drug Resistant Organisms: None Reported Past Surgical History: Breast Surgery, Tonsillectomy Additional Past Surgical History / Comment(s): EGD's, part of stomach removed related to ulcers, left lung surg-removed small part related to bleb,. COLONOSCOPY. RT CAROTID ENDARTERECTOMY,. BREAST AUGMENTATION X 4 Past Anesthesia/Blood Transfusion Reactions: Previous Problems w/ Anesthesia Additional Past Anesthesia/Blood Transfusion Reaction / Comment(s): some kind of problem after stomach surgery, "got too much", & aggravated lupus which affected lungs Past Psychological History: No Psychological Hx Reported Smoking Status: Current every day smoker Past Alcohol Use History: None Reported Past Drug Use History: None Reported - Past Family History Father Family Medical History: Cancer Medications and Allergies Home Medications Medication Instructions Recorded Confirmed Type Hydroxychloroquine Sulfate 200 mg PO DAILY 03/02/14 08/25/24 History [Plaquenil] Folic Acid 1 mg PO DAILY 08/05/20 08/25/24 History atenoloL 12.5 mg PO DAILY 08/05/20 08/25/24 History FLUoxetine HCL [PROzac] 20 mg PO DAILY 04/10/22 08/25/24 History amLODIPine [Norvasc] 5 mg PO DAILY 04/10/22 08/25/24 History ALPRAZolam [Xanax] 0.25 mg PO DAILY PRN 04/23/24 08/25/24 History Cyclobenzaprine [Flexeril] 10 mg PO DAILY PRN 04/23/24 08/25/24 History HYDROcodone/APAP 5-325MG [[place] 1 tab PO TID PRN 04/23/24 08/25/24 History 5-325] Levothyroxine Sodium [Synthroid] 100 mcg PO DAILY 04/23/24 08/25/24 History Losartan [Cozaar] 50 mg PO DAILY 04/23/24 08/25/24 History Rosuvastatin Calcium [Crestor] 5 mg PO DAILY 04/23/24 08/25/24 History Albuterol Nebulized [Ventolin 2.5 mg INHALATION RT-QID PRN 08/25/24 08/25/24 History Nebulized] Albuterol Sulfate [Ventolin HFA] 2 puff INHALATION RT-QID PRN 08/25/24 08/25/24 History oxyBUTYnin chloride [Ditropan] 5 mg PO DIRECTED 08/25/24 08/25/24 History Allergies Allergy/AdvReac Type Severity Reaction Status Date / Time nitrofurantoin AdvReac Nausea & Verified 08/25/24 09:46 [From Macrobid] Vomiting & Diarrhea Physical Exam Osteopathic Statement: *. No significant issues noted on an osteopathic structural exam other than those noted in the History and Physical/Consult. Vitals: Vital Signs Temp Pulse Resp BP Pulse Ox 08/25/24 12:00 56 L 20 104/42 98 08/25/24 10:22 64 18 154/55 99 08/25/24 10:21 67 08/25/24 10:14 63 18 154/55 98 08/25/24 09:22 65 08/25/24 09:11 63 08/25/24 09:00 62 21 146/59 92 L 08/25/24 08:00 60 20 156/56 98 08/25/24 07:46 24 08/25/24 07:40 98 F 56 L 24 156/56 89 L Intake and Output 08/24/24 08/25/24 08/25/24 22:59 06:59 14:59 Other: Weight 34.473 kg Results CBC & Chem 7: 08/25/24 08:06 08/25/24 08:06 Labs: Abnormal Lab Results - Last 24 Hours (Table) 08/25/24 08/25/24 08/25/24 Range/Units 08:06 08:06 08:06 WBC 12.9 H (3.8-10.6) k/uL MCV 109.0 H (80.0-100.0) fL MCHC 29.8 L (31.0-37.0) g/dL Neutrophils # 10.2 H (1.3-7.7) k/uL Macrocytosis Marked A VBG pH (7.31-7.41) VBG HCO3 (24-28) mmol/L Sodium 136 L (137-145) mmol/L Potassium 5.4 H (3.5-5.1) mmol/L Chloride 108 H (98-107) mmol/L Carbon Dioxide 13 L (22-30) mmol/L BUN 18 H (7-17) mg/dL Creatinine 1.20 H (0.52-1.04) mg/dL Glucose 147 H (74-99) mg/dL Plasma Lactic Acid Som 8.0 H* (0.7-2.0) mmol/L Magnesium 2.4 H (1.6-2.3) mg/dL AST 111 H (14-36) U/L ALT 35 H (4-34) U/L Troponin I (0.000-0.034) ng/mL 08/25/24 08/25/24 08/25/24 Range/Units 08:06 08:06 11:01 WBC (3.8-10.6) k/uL MCV (80.0-100.0) fL MCHC (31.0-37.0) g/dL Neutrophils # (1.3-7.7) k/uL Macrocytosis VBG pH 7.12 L* (7.31-7.41) VBG HCO3 13 L (24-28) mmol/L Sodium (137-145) mmol/L Potassium (3.5-5.1) mmol/L Chloride (98-107) mmol/L Carbon Dioxide (22-30) mmol/L BUN (7-17) mg/dL Creatinine (0.52-1.04) mg/dL Glucose (74-99) mg/dL Plasma Lactic Acid Som 10.1 H* (0.7-2.0) mmol/L Magnesium (1.6-2.3) mg/dL AST (14-36) U/L ALT (4-34) U/L Troponin I 2.280 H* (0.000-0.034) ng/mL 08/25/24 Range/Units 12:58 WBC (3.8-10.6) k/uL MCV (80.0-100.0) fL MCHC (31.0-37.0) g/dL Neutrophils # (1.3-7.7) k/uL Macrocytosis VBG pH (7.31-7.41) VBG HCO3 (24-28) mmol/L Sodium (137-145) mmol/L Potassium (3.5-5.1) mmol/L Chloride (98-107) mmol/L Carbon Dioxide (22-30) mmol/L BUN (7-17) mg/dL Creatinine (0.52-1.04) mg/dL Glucose (74-99) mg/dL Plasma Lactic Acid Som (0.7-2.0) mmol/L Magnesium (1.6-2.3) mg/dL AST (14-36) U/L ALT (4-34) U/L Troponin I 48.800 H* (0.000-0.034) ng/mL
--- NOTE | 2024-08-25 18:12 | XR ---
EXAMINATION TYPE: XR chest 1V DATE OF EXAM: 08/25/2024 COMPARISON: 08/25/2024 HISTORY: 64-year-old female pulmonary edema TECHNIQUE: Single frontal view of the chest is obtained. FINDINGS: Heart mildly enlarged. Hyperinflation. Diffuse interstitial opacities. Patchy bibasilar op acities and trace bilateral pleural effusions. Stable line and left apex likely related to prior wedg e resection. IMPRESSION: COPD with superimposed CHF and mild interstitial pulmonary edema. Trace bilateral pleura l effusions. [facility] Loretta Gomez, , 08/25/2024 6:10 PM
[2024-08-25 18:37] VITALS: BP 150/48; PULSE 52; RESP 18
[2024-08-25 20:00] LABS: African American GFR (CKD) 43 (>60 ml/min/1.73 sqM); Anion Gap 21 mmol/L; Blood Urea Nitrogen 26 mg/dL (7-17); Calcium 7.9 mg/dL (8.4-10.2); Chloride 109 mmol/L (98-107); Non-African American GFR(CKD) 37 (>60 ml/min/1.73 sqM); Sodium 136 mmol/L (137-145)
[2024-08-25 20:11] LABS: Carbon Dioxide 6 mmol/L (22-30); Glucose 34 mg/dL (74-99); Potassium 6.1 mmol/L (3.5-5.1)
[2024-08-25] MEDS ORDERED: NITROGLYCERIN SL TABS 0.4 MG TAB SUBLINGUAL PRN (20:21)
[2024-08-25] MEDS ORDERED: ALPRAZolam 0.5 MG TAB PO PRN (20:21)
[2024-08-25] MEDS ORDERED: ALPRAZolam 0.25 MG TAB PO PRN (20:21)
[2024-08-25 20:31] LABS: Glucose,Whole Blood 27 mg/dL (70-110)
[2024-08-25] MEDS: DEXTROSE 50% SYRINGE 50 ML IVP STA (20:31)
[2024-08-25 20:40] LABS: Glucose,Whole Blood 236 mg/dL (70-110)
[2024-08-25] MEDS: HYDROmorphone 0.5 MG/0.5 ML SYRINGE IVP PRN (20:47)
[2024-08-25] MEDS: IPRATROPIUM-ALBUTEROL 3 ML NEB INHALATION SCH (20:53)
[2024-08-25 23:04] VITALS: TEMP 97.1
[2024-08-26] MEDS ORDERED: ASPIRIN 325 MG TAB PO ONE (05:00)
[2024-08-26] MEDS ORDERED: ATORVASTATIN 80 MG TAB PO ONE (05:00)
[2024-08-26] MEDS ORDERED: HEPARIN SODIUM,PORCINE 10,000 UNIT in SODIUM CHLORIDE 0.9% 1,000 ML IRRIGATION PRN (07:00)
[2024-08-26] MEDS ORDERED: HEPARIN SODIUM,PORCINE (1 ML) 2,500 UNIT in SODIUM CHLORIDE 0.9% 250 ML IRRIGATION PRN (07:00)
[2024-08-26] MEDS ORDERED: atenoloL 25 MG TAB PO SCH (09:00)
[2024-08-26] MEDS ORDERED: ATORVASTATIN 40 MG TAB PO SCH (09:00)
[2024-08-26] MEDS ORDERED: ATORVASTATIN 20 MG TAB PO SCH (09:00)
[2024-08-26] MEDS ORDERED: LOSARTAN 50 MG TAB PO SCH (09:00)
[2024-08-26] MEDS ORDERED: ASPIRIN 81 MG PO SCH (09:00)
[2024-08-26] MEDS ORDERED: amLODIPine 5 MG TAB PO SCH (09:00)
--- NOTE | 2024-08-26 09:19 | CA ---
Transthoracic Echo Report Name: Debbie Watson Age: 64 Gender: F : 1960 Exam Date: 08/25/2024 17:18 Exam Location: [place] Echo Ht (in): 62 Wt (lb): 76 Ordering Physician: Chloe Mendoza Attending/Referring Phys: [id number], Reji Completion Supervisor Kenya He RDCS Procedure CPT: Indications: LVF Cardiac Hx: Technical Quality: Fair Contrast 1: Total Dose (mL): Contrast 2: Total Dose (mL): MEASUREMENTS (Male / Female) Normal Values 2D ECHO LV Diastolic Diameter PLAX 3.8 cm 4.2 - 5.9 / 3.9 - 5.3 cm LV Systolic Diameter PLAX 2.0 cm IVS Diastolic Thickness 1.3 cm 0.6 - 1.0 / 0.6 - 0.9 cm LVPW Diastolic Thickness 1.2 cm 0.6 - 1.0 / 0.6 - 0.9 cm LV Relative Wall Thickness 0.7 RV Internal Dim ED PLAX 2.7 cm LVOT Diameter 1.8 cm LA Volume 46.5 cm??? 18 - 58 / 22 - 52 cm??? LA Volume Index 38.4 cm???/m??? 16 - 28 cm???/m??? M-MODE Aortic Root Diameter MM 2.7 cm DOPPLER AV Peak Velocity 300.6 cm/s AV Peak Gradient 36.1 mmHg AV Mean Velocity 155.0 cm/s AV Mean Gradient 13.8 mmHg AV Velocity Time Integral 67.1 cm AI Peak Velocity 368.2 cm/s AI Peak Gradient 54.2 mmHg AI Pressure Half Time 448.2 ms LVOT Peak Velocity 72.5 cm/s LVOT Peak Gradient 2.1 mmHg LVOT Velocity Time Integral 17.3 cm LVOT Stroke Volume 41.8 cm??? LVOT Stroke Volume Index 33.0 ml/m??? LVOT Cardiac Index 1795.4 cm???/min???m??? AV Area Cont Eq vti 0.6 cm??? AV Area Cont Eq pk 0.6 cm??? MV Area PHT 3.2 cm??? Mitral E Point Velocity 116.0 cm/s Mitral A Point Velocity 1.8 cm/s Mitral E to A Ratio 64.5 MV Deceleration Time 235.8 ms MV E' Velocity 5.2 cm/s Mitral E to MV E' Ratio 22.4 TR Peak Velocity 331.1 cm/s TR Peak Gradient 43.8 mmHg Right Ventricular Systolic Press 46.7 mmHg FINDINGS Left Ventricle Mildly increased left ventricular wall thickness. Left ventricular cavity size normal. Left ventricular ejection fraction is estimated at 55 %. Right Ventricle Normal right ventricular size and function. Moderate pulmonary hypertension. Right Atrium Mild right atrial dilatation. Left Atrium Moderately increased left atrial volume. Mitral Valve Structurally normal mitral valve. Mitral valve thickened. Mild mitral annular calcification. Moderate to severe mitral regurgitation. Posteriorly directed mitral regurgitation jet. Aortic Valve Severe low-flow low-gradient aortic stenosis with a peak velocity of 3 m/s, peak gradient 36 mmHg, mean gradient 14 mmHg, and estimated aortic valve area of 0.6 cm??? with a stroke volume index of 33 cc/m2. Moderate aortic regurgitation. Tricuspid Valve Structurally normal tricuspid valve. Moderate tricuspid regurgitation. Pulmonic Valve Structurally normal pulmonic valve. Pericardium No pericardial effusion. Aorta Normal size aortic root and proximal ascending aorta. CONCLUSIONS LV systolic function is well-preserved with mild concentric LVH. Moderate to severe aortic stenosis. The Doppler exam was suboptimal could not get a good signal. There is also moderate to severe mitral regurgitation. There is moderate aortic regurgitation and moderate pulmonary hypertension. No pericardial effusion Previewed by: Dr. Heber Overton MD (Electronically Signed) Final Date: 26 August 2024 09:18
--- NOTE | 2024-08-26 18:39 | P.DS ---
Providers Date of admission: 08/25/24 09:36 Attending physician: Piotr Martinez MD Hospital Course: Patient is a 64-year-old female with PMH of COPD (not on continuous home oxygen), hypertension, hyperlipidemia presents to the ER via EMS for worsening dyspnea. EKG in the ER shows normal sinus rhythm with possible left atrial enlargement. Nonspecific ST and T wave changes noted. QTc borderline prolonged at 442 ms. Poor R wave progression.Chest x-ray done in the ER shows diffuse reticulonodular opacities. Laboratory evaluation shows WBC 12.9, hemoglobin 13.6, MCV 109.0, platelet count 207. Blood gas VBG pH shows 7.12, pCO2 41, bicarb 13,Sodium 136, potassium 5.4, chloride 108, bicarb 13, BUN 18, creatinine 1.2, EGFR 55, glucose 147, Lactic acid 8.0 --->10.1. Magnesium 2.4, total bili 1.2, AST 111, ALT 35. Troponin I 2.280, BNP [id number]. Echocardiogram showed left ventricular ejection fraction of 55%. Moderate to severe aortic stenosis as well as moderate to severe mitral regurgitation. Patient unfortunately on the night of 08/25/2024. In addition to the above, it was noted the patient's troponins were increasing rapidly initially were 2.2 and then increased to 58 then increased to 140s. Based on patient's worsening clinical status as well as increasing troponins, I proceeded to obtain a follow-up chest x-ray, EKG, as well as right sided EKG to ensure no posterior STEMI. Chest x-ray did demonstrate signs of worsening heart failure, repeat standard EKG demonstrated hyperacute T waves, right-sided EKG and standard EKG were both negative for ST elevation AR. Based on these findings I asked for stat repeat basic metabolic panel to ensure no hyperkalemia . Cardiology had evaluated this patient, with plans to do a left heart cath in the morning. Unfortunately, shortly after patient became hypoglycemic and coded. I had previously discussed CODE STATUS with this patient and she did request to be DNR/DNI. Patient therefore was not resuscitated and on 08/25. Diagnosis: #Acute hypoxemic respiratory failure in the setting of COPD exacerbation vs Acute Heart Failure Exacerbation #Congestive heart failure secondary to mitral regurgitation #Elevated troponin #Acute kidney injury secondary to prerenal azotemia in the setting of CHF with hyperkalemia #Anion gap metabolic acidosis secondary lactic acidosis secondary to above #Leukocytosis likely reactive #Transaminitis #Cachexia, BMI 13.9 #Severe Protein Calorie Malnutrition I saw and evaluated the patient during the egan and critical portions of this encounter, and discussed the case in detail with the resident author of this note, I agree with the Assessment and Plan, and my changes, if any, are highlighted in blue. Consults: 08/25/24 09:25 Consult Physician Routine Consulting Provider: Ronald Rawls Consult Reason/Comments: elevated troponin Do you want consulting provider notified?: Already Contacted Primary care physician: Dwayne Delvalle Patient Condition at Discharge: Fair Plan - Discharge Summary New Discharge Prescriptions: No Action Hydroxychloroquine Sulfate [Plaquenil] 200 mg PO DAILY Folic Acid 1 mg PO DAILY atenoloL 12.5 mg PO DAILY amLODIPine [Norvasc] 5 mg PO DAILY HYDROcodone/APAP 5-325MG [[place] 5-325] 1 tab PO TID PRN PRN Reason: Pain Levothyroxine Sodium [Synthroid] 100 mcg PO DAILY Losartan [Cozaar] 50 mg PO DAILY oxyBUTYnin chloride [Ditropan] 5 mg PO DIRECTED Albuterol Sulfate [Ventolin HFA] 2 puff INHALATION RT-QID PRN PRN Reason: Shortness Of Breath Albuterol Nebulized [Ventolin Nebulized] 2.5 mg INHALATION RT-QID PRN PRN Reason: Shortness Of Breath FLUoxetine HCL [PROzac] 20 mg PO DAILY ALPRAZolam [Xanax] 0.25 mg PO DAILY PRN PRN Reason: Anxiety Cyclobenzaprine [Flexeril] 10 mg PO DAILY PRN PRN Reason: Muscle Spasm Rosuvastatin Calcium [Crestor] 5 mg PO DAILY Discharge Medication List Hydroxychloroquine Sulfate [Plaquenil] 200 mg PO DAILY 03/02/14 [History] Folic Acid 1 mg PO DAILY 08/05/20 [History] atenoloL 12.5 mg PO DAILY 08/05/20 [History] FLUoxetine HCL [PROzac] 20 mg PO DAILY 04/10/22 [History] amLODIPine [Norvasc] 5 mg PO DAILY 04/10/22 [History] ALPRAZolam [Xanax] 0.25 mg PO DAILY PRN 04/23/24 [History] Cyclobenzaprine [Flexeril] 10 mg PO DAILY PRN 04/23/24 [History] HYDROcodone/APAP 5-325MG [[place] 5-325] 1 tab PO TID PRN 04/23/24 [History] Levothyroxine Sodium [Synthroid] 100 mcg PO DAILY 04/23/24 [History] Losartan [Cozaar] 50 mg PO DAILY 04/23/24 [History] Rosuvastatin Calcium [Crestor] 5 mg PO DAILY 04/23/24 [History] Albuterol Nebulized [Ventolin Nebulized] 2.5 mg INHALATION RT-QID PRN 08/25/24 [History] Albuterol Sulfate [Ventolin HFA] 2 puff INHALATION RT-QID PRN 08/25/24 [History] oxyBUTYnin chloride [Ditropan] 5 mg PO DIRECTED 08/25/24 [History] Follow up Appointment(s)/Referral(s): Dwayne Delvalle DO [Primary Care Provider] - 1-2 days Discharge Disposition: - Preliminary Cause of Preliminary Cause of : Myocardial Infarction
--- NOTE | 2024-09-05 19:00 | CDI ---
Documentation Clarification Form Date: 09/05/2024 06:26:37 PM From: Ebonie Rodrigues Phone: Admit Date: 08/25/2024 09:36:00 AM Patient Name: Debbie Watson Visit Number: [id number] Discharge Date: 08/25/2024 08:48:00 PM ATTENTION: The Clinical Documentation Specialists (CDI) and [facility] Coding Staff appreciate your assistance in clarifying documentation. Please respond to the clarification below the line at the bottom and electronically sign. The CDI & [facility] Coding staff will review the response and follow-up if needed. Please note: Queries are made part of the Legal Health Record. If you have any questions, please contact the author of this message via ITS. Doctor/Provider: Piotr Martinez Your patient has the documented diagnosis of acute/worsening CHF H&P and DC Summary. Additional information regarding the type and acuity of CHF is requested. History/Risk Factors: 64yo F, AHRF, COPD, CHF, MR, DAVON, elevated troponin, /AR, hyperkalemia, met/lactic acidosis, leukocytosislikely reactive, transaminitis, PCM w cachexia Clinical Indicators: VS/Pulse OX: 89 BNP: [id number] Echo: LV systolic function is well-preserved with mild concentric LVH. Moderate to severeAS. TheDopplerexam was suboptimal could not get a good signal. There is also moderate to severeMR. There is moderate ARand moderatePHTN. No pericardial effusion Chest X Ray: Lungs/Pleura: Subtle airspaceopacitiessuperimposed on reticularopacities. There is flattening of the diaphragm with increased lucency in the lung apices. There isno evidence ofpleural effusion, focal consolidation, orpneumothorax. Pulmonary vascularity: Unremarkable. Heart/mediastinum: Cardiomediastinal silhouette is unremarkable. Musculoskeletal: No acute osseous pathology. Treatment: Chest x-raydid demonstrate signs of worseningheart failure, repeat standard EKG demonstrated hyperacute T waves, right-sided EKG and standard EKGwere both negative Marianne elevation ID. Based on these findings I asked for stat repeat basic metabolic panel to ensureno hyperkalemia. Cardiology had evaluated this patient, with plans to do aleft heart Cathin the morning. Unfortunately, shortly after patient became hypoglycemicand coded. I had previously discussed CODE STATUS with this patient and she did request to beDNR/DNI. Patient thereforewas not resuscitatedand on 08/25. In your professional opinion, can you please clarify the acuity and type of CHF if known? [ ] Acute Systolic Heart Failure (reduced EF) [ ] Chronic Systolic Heart Failure (reduced EF) [ ] Acute on Chronic Systolic Heart Failure (reduced EF) [ x ] Acute Diastolic Heart Failure (preserved EF) [ ] Chronic Diastolic Heart Failure (preserved EF) [ ] Acute on Chronic Diastolic Heart Failure (preserved EF) [ ] Acute Systolic & Diastolic Heart Failure [ ] Chronic Systolic & Diastolic Heart Failure [ ] Acute on Chronic Heart Failure Systolic & Diastolic Heart Failure [ x ] Other, please specify: Acute Heart Failure likely secondary to acute mitral valve dysfunction [ ] Unable to determine (Template Last Revised: December 2020) MTDD
== END 2024-08-25 20:48 | disposition expired ==
LOC: EC 07:37 → 3SCARD 09:36 → UNDODISIN 08-26 00:11
PROVIDERS: ADMIT Internal Medicine; ATTEND Internal Medicine
DX: I08.0 Rheumatic disorders of both mitral and aortic valves (principal); E43 Unspecified severe protein-calorie malnutrition; I21.4 Non-ST elevation (NSTEMI) myocardial infarction; J96.02 Acute respiratory failure with hypercapnia; J96.01 Acute respiratory failure with hypoxia; I50.31 Acute diastolic (congestive) heart failure; E87.20 Acidosis, unspecified; N17.9 Acute kidney failure, unspecified; Z68.1 Body mass index [BMI] 19.9 or less, adult; I46.9 Cardiac arrest, cause unspecified; Z66 Do not resuscitate; E88.A Wasting disease (syndrome) due to underlying condition; J44.9 Chronic obstructive pulmonary disease, unspecified; I10 Essential (primary) hypertension; F17.210 Nicotine dependence, cigarettes, uncomplicated; G89.29 Other chronic pain; M54.50 Low back pain, unspecified; E78.5 Hyperlipidemia, unspecified; D72.828 Other elevated white blood cell count; E87.5 Hyperkalemia; R00.1 Bradycardia, unspecified; R74.01 Elevation of levels of liver transaminase levels; E16.2 Hypoglycemia, unspecified; Z79.890 Hormone replacement therapy; Z79.899 Other long term (current) drug therapy; Z11.52 Encounter for screening for COVID-19
CPT/HCPCS: 36415; 71045; 71046; 80048; 80053; 82803; 83605; 83735; 83880; 84484; 85025; 85610; 85730; 87636; 93005; 93306; 94640; 96361; 96365; 96366; 96368; 96375; 99291